=== PATIENT | male | born 1935 | race Caucasian/White ===

== ENCOUNTER 2017-11-18 15:16 | Outpatient (CLI) | payer MEDICARE, OTHER ==
--- NOTE | 2017-11-18 15:54 | RAD ---
LEFT HIP THREE VIEWS: History: Hip pain. FINDINGS: Minimal arthritic change of the hip joint are seen. No significant joint space narrowing. Extensive v ascular calcifications. IMPRESSION: Minimal arthritic changes of the hip. POS: ALEX
--- NOTE | 2017-11-18 15:55 | RAD ---
RIGHT HIP TWO VIEWS: History: Right hip pain. FINDINGS: There is very minimal arthritic change of the hip joint. No significant joint space narrowing. Extens glo vascular calcifications are seen. IMPRESSION: Atherosclerosis. No significant joint space narrowing or significant arthritic change. POS: ALEX
--- NOTE | 2017-11-18 15:57 | RAD ---
AP PELVIS: History: Bilateral hip pain. FINDINGS: Pelvic ring is intact. There are minimal arthritic changes of both hips. There are arthritic changes of the lower lumbar spine. There is fairly extensive vascular calcifications noted. IMPRESSION: No acute findings. Minimal arthritic changes of both hips. Extensive atherosclerosis. POS: ALEX
== END 2017-11-18 15:17 | disposition home or self-care (01) ==
LOC: TBSIIMAG 15:16
PROVIDERS: ATTEND Psychiatry & Neurology Neurology
DX: M25.551 Pain in right hip (principal); M25.552 Pain in left hip; M16.0 Bilateral primary osteoarthritis of hip; I70.90 Unspecified atherosclerosis
CPT/HCPCS: 72170

== ENCOUNTER 2017-12-02 08:43 | Outpatient (CLI) | payer MEDICARE, OTHER | END 2017-12-02 08:44 | disposition home or self-care (01) | LOC: BICMRI 08:43 | PROVIDERS: ATTEND Psychiatry & Neurology Neurology | DX: M47.896 Other spondylosis, lumbar region (principal); M48.061 Spinal stenosis, lumbar region without neurogenic claudication; M99.83 Other biomechanical lesions of lumbar region | CPT/HCPCS: 72148 ==

== ENCOUNTER 2018-12-14 00:08 | Outpatient (CLI) | payer MEDICARE, OTHER ==
[2018-12-14 10:51] LABS: PTT 30.1 SEC (22.9-36.1); Prothrombin Time 13.5 SEC (12.0-14.7)
[2018-12-14 10:58] LABS: Anion Gap 12 mmol/L (10-20); BUN (Urea Nitrogen) 71 mg/dL (8.4-25.7); Calc. Creatinine Clearance 0 mL/min (70-130); Calcium 8.9 mg/dL (7.8-10.44); Carbon Dioxide 23 mmol/L (23-31); Chloride 107 mmol/L (98-107); Estimated GFR-MDRD 29; Glucose 248 mg/dL (83-110); Potassium 5.3 mmol/L (3.5-5.1); Sodium 137 mmol/L (136-145)
[2018-12-14 12:30] LABS: Hemoglobin 8.2 g/dL (14.0-18.0); Mean Corpuscular HGB CONC 31.5 g/dL (32.0-36.0); Mean Corpuscular Hemoglobin 33.3 pg (27.0-31.0); Mean Platelet Volume 10.6 fL (7.4-10.4); Platelet Count 151 thou/uL (130-400); RBC Distribution Width 17.1 % (11.5-14.5); Red Blood Cell (RBC) Count 2.46 mill/uL (4.70-6.10); White Blood Cell (WBC) Count 6.9 thou/uL (4.8-10.8)
--- NOTE | 2018-12-14 18:20 | EKG ---
Test Reason : Blood Pressure : / mmHG Vent. Rate : 055 BPM Atrial Rate : 055 BPM P-R Int : 200 ms QRS Dur : 090 ms QT Int : 444 ms P-R-T Axes : 059 056 040 degrees QTc Int : 424 ms Sinus bradycardia Inferior infarct , age undetermined Abnormal ECG No previous ECGs available Confirmed by DR. Sharan OVALLE (3) on 12/14/2018 6:20:08 PM Referred By: GISELLA Confirmed By:DR. Sharan OVALLE
== END 2018-12-14 00:09 | disposition home or self-care (01) ==
LOC: LABBT 00:08
PROVIDERS: ATTEND Surgery
DX: Z01.818 Encounter for other preprocedural examination (principal); M54.16 Radiculopathy, lumbar region; M48.061 Spinal stenosis, lumbar region without neurogenic claudication
CPT/HCPCS: 80048; 85027; 85610; 85730; 93005; 93010

== ENCOUNTER 2018-12-21 07:23 | Inpatient (IN) | payer MEDICARE, OTHER ==
[2018-12-14 08:53] VITALS: BMI 25.8
[2018-12-21] MEDS ORDERED: Promethazine HCl 25 MG/ML VIAL SLOW IVP PRN ×2 (08:22→12:59)
[2018-12-21] MEDS ORDERED: Promethazine HCl 25 MG/ML VIAL IM PRN ×3 (08:22→12:59)
[2018-12-21] MEDS ORDERED: Ondansetron HCl/PF 4 MG/2 ML Vial IVP PRN ×2 (08:22→12:59)
[2018-12-21] MEDS ORDERED: Insulin Regular 300 UNITS/3 ML VIAL ONE (08:25)
[2018-12-21] MEDS ORDERED: Rocuronium Bromide 10 MG/ML (10ML VIAL) ONE (09:11)
[2018-12-21] MEDS ORDERED: PROPOFOL 200 MG/20 ML VIAL ONE (09:11)
[2018-12-21] MEDS ORDERED: Glycopyrrolate 0.2 MG/ML 5 ML SYRINGE ONE (09:11)
[2018-12-21] MEDS ORDERED: Lidocaine 1% PF 5 ML VIAL ONE (09:11)
[2018-12-21] MEDS ORDERED: ePHEDrine 50 MG/ML VIAL ONE (09:11)
[2018-12-21] MEDS ORDERED: PHENYLEPHRINE-NS 100 MCG/ML 10 ML SYRINGE ONE (09:11)
[2018-12-21] MEDS ORDERED: Ondansetron PF 4 MG/2 ML Vial ONE (09:11)
[2018-12-21] MEDS ORDERED: Thrombin 5000 UNITS/5 ML VIAL ONE ×2 (09:19→12:03)
[2018-12-21] MEDS ORDERED: Bacitracin Zinc Ointment 30 gm TUBE ONE (09:19)
[2018-12-21] MEDS ORDERED: Sodium Chloride 0.9% 10 ML ONE (09:19)
[2018-12-21] MEDS ORDERED: Fentanyl 100 MCG/2 ML VIAL ONE (10:01)
[2018-12-21] MEDS ORDERED: Milk Of Magnesia 30 ML UDCUP PO PRN (12:54)
[2018-12-21] MEDS ORDERED: Fleet Enema 133 ML BOT PR PRN (12:54)
[2018-12-21] MEDS ORDERED: Acetaminophen/Codeine 30-300mg Tablet PO PRN (12:54)
[2018-12-21] MEDS ORDERED: traMADol HCl 50 MG TAB PO PRN (12:54)
[2018-12-21] MEDS ORDERED: Mag-Al 1200 mg/1200 mg/30 ML UDCUP PO PRN (12:54)
[2018-12-21] MEDS ORDERED: Bisacodyl 10 MG SUPP PR PRN (12:54)
[2018-12-21] MEDS ORDERED: HYDROcodone/Acetaminophen 7.5/325 mg Tablet PO PRN (12:54)
[2018-12-21] MEDS ORDERED: Morphine 4 MG/ML VIAL SLOW IVP PRN (12:54)
[2018-12-21] MEDS ORDERED: Morphine Sulfate 2 MG/ML SYRINGE SLOW IVP PRN (12:59)
[2018-12-21] MEDS ORDERED: Meperidine HCl/PF 25 MG/ML VIAL SLOW IVP PRN (12:59)
[2018-12-21] MEDS ORDERED: Insulin Regular 300 UNITS/3 ML VIAL SC SCH (13:30)
[2018-12-21] MEDS ORDERED: HumaLOG 300 UNITS/3 ML VIAL SC SCH (17:00)
[2018-12-21] MEDS: CEFAZOLIN 2 GM in Premix Bag 1 BAG IVPB SCH (19:00)
[2018-12-21] MEDS ORDERED: INSULIN GLARGINE HUM REC ANLOG 8 UNIT SQ SCH (21:00)
[2018-12-21] MEDS: Sodium Chloride 0.9% 1,000 ML IV SCH (21:01)
[2018-12-21] MEDS: Insulin Glargine 8 UNITS in Pre-Filled Syringe 1 EACH SC SCH (21:15)
[2018-12-21] MEDS ORDERED: Dextrose 50% Abboject 50 ML SYRINGE ONE (21:36)
[2018-12-21 22:09] LABS: Glucose Accucheck Confirmation 45 mg/dl (83-110)
[2018-12-22] MEDS: CEFAZOLIN 2 GM in Premix Bag 1 BAG IVPB SCH (01:21)
[2018-12-22] MEDS: Sodium Chloride 0.9% 1,000 ML IV SCH ×2 (02:30→16:22)
[2018-12-22] MEDS ORDERED: Cepastat Lozenges 1 LOZ PO PRN (07:21)
[2018-12-22] MEDS ORDERED: Eucerin (Mineral Oil/Petrolatum,White) 30 gm Jar TOP PRN (07:21)
[2018-12-22] MEDS ORDERED: Ondansetron ODT 4 MG TAB SL PRN (07:21)
[2018-12-22] MEDS ORDERED: Ondansetron PF 4 MG/2 ML Vial IVP PRN (07:21)
[2018-12-22] MEDS ORDERED: Senokot S 8.6-50 MG TAB PO PRN (07:21)
[2018-12-22] MEDS ORDERED: Loratadine 10 MG TAB PO PRN (07:21)
[2018-12-22] MEDS ORDERED: hydrALAZINE 20 MG/ML VIAL SLOW IVP PRN (07:21)
[2018-12-22] MEDS ORDERED: Sodium Chloride 0.65% Nasal 44 ML BOT EA NARE PRN (07:21)
[2018-12-22] MEDS ORDERED: Artificial Tears 18 DROP/0.9 ML EA EYE PRN (07:21)
[2018-12-22] MEDS ORDERED: Loperamide HCl 2 MG CAP PO PRN (07:21)
[2018-12-22] MEDS ORDERED: Dextrose 50% Abboject 50 ML SYRINGE SLOW IVP PRN (07:22)
[2018-12-22] MEDS ORDERED: Dextrose 5% in Water 1,000 ML IV PRN (07:22)
--- NOTE | 2018-12-22 07:31 | OP ---
DATE OF PROCEDURE: 12/21/2018 OPERATING ROOM: OR 12. BATTERBOARD SETTER: Scar Walters PA-C. PREPROCEDURE DIAGNOSIS: Lumbar stenosis with low back and leg pain with far-lateral left-sided disk extrusion at L4-L5. POSTPROCEDURE DIAGNOSIS: Lumbar stenosis with low back and leg pain with far-lateral left-sided disk extrusion at L4-L5. PROCEDURES PERFORMED: 1. L3-L4 and L4-L5 laminectomies, partial facetectomies, and foraminotomies. 2. Use of operative microscope for microdissection. 3. Left L4-L5 trans-facet approach for far lateral diskectomy. DESCRIPTION OF PROCEDURE: After informed consent was obtained from the patient, the patient was brought to the OR. Proper patient, pause, and identification were carried out. He was placed under excellent general endotracheal anesthesia and positioned prone on the OR table. All appropriate points were padded. We identified the L3, L4, and L5 dorsal spines. A linear loki was made over this region. This area was sterilely cleansed, prepared, and draped. Proper patient, pause, and identification were carried out. The wound was then opened with combination of sharp, monopolar, and blunt dissection. The L3, L4, and L5 dorsal spines and lamina were exposed. Localization film confirmed our area of interest. We then performed L3-L4 and L4-L5 laminectomies, partial facetectomies, and foraminotomies with excellent decompression of the common dural tube in the L3, L4, and L5 nerve roots. We then turned our attention to the use of operative microscope for microdissection, performed a left L4-L5 trans-facet approach for diskectomy to decompress the exiting left L4 nerve root in its lateral and far-lateral portions of its anatomy. We removed disk material and achieved excellent decompression. I should note over the right L3-L4 segment. There was a small opening in the dura with arachnoid exposed that was partial thickness, but no CSF leak. This was protected with dissolvable Gelfoam. Copious irrigation occurred throughout as did maximizing hemostasis. The wound was then closed in anatomic layers following this placement of a small amount of DuraSeal, and the patient then emerged from anesthesia. Job ID: [id number]
[2018-12-22 08:42] LABS: Anion Gap 17 mmol/L (10-20); BUN (Urea Nitrogen) 67 mg/dL (8.4-25.7); Calc. Creatinine Clearance 22 mL/min (70-130); Calcium 7.8 mg/dL (7.8-10.44); Carbon Dioxide 19 mmol/L (23-31); Chloride 103 mmol/L (98-107); Estimated GFR-MDRD 21; Glucose 428 mg/dL (83-110); Potassium 5.2 mmol/L (3.5-5.1); Sodium 134 mmol/L (136-145)
[2018-12-22] MEDS ORDERED: Lisinopril 20 MG TAB PO SCH (09:00)
[2018-12-22] MEDS ORDERED: Rosuvastatin 10 MG TAB PO SCH (09:00)
[2018-12-22] MEDS: Furosemide 40 MG TAB PO SCH (09:58)
[2018-12-22] MEDS: Tamsulosin HCl 0.4 MG CAP PO SCH (09:58)
[2018-12-22] MEDS: Insulin Glargine 8 UNITS in Pre-Filled Syringe 1 EACH SC SCH (10:34)
[2018-12-22] MEDS: HumaLOG 300 UNITS/3 ML VIAL SC SCH ×2 (10:35→17:25)
[2018-12-22 10:45] LABS: Band 12 % (5-11); Hemoglobin 6.6 g/dL (14.0-18.0); Hypochromia SLIGHT = 6-15 cells (100X) (0-5/hpf); Lymphocytes 10 % (21-51); MDiff Complete? YES; Macrocytosis SLIGHT = 6-15 cells (100X) (0-5/hpf); Mean Corpuscular HGB CONC 31.6 g/dL (32.0-36.0); Mean Corpuscular Hemoglobin 34.5 pg (27.0-31.0); Mean Platelet Volume 11.4 fL (7.4-10.4); Monocytes 9 % (0-10); Neutrophil 69 % (42-75); Platelet Count 129 thou/uL (130-400); Platelet Morphology Comment Appears Adequate; Polychromasia SLIGHT = 2-3 cells (100X) (0-2/hpf); RBC Distribution Width 17.7 % (11.5-14.5); Schistocytes SLIGHT = 2-5 cells (100X) (0-1/hpf); White Blood Cell (WBC) Count 12.2 thou/uL (4.8-10.8)
--- NOTE | 2018-12-22 11:10 | PDOC.PN ---
- Subjective Encounter Start Date: 12/22/18 Encounter Start Time: 09:30 -: old records requested/rev last night pt had urinary retention and required guzmán+, today his Hb dropped, no chest pain, he is weak Patient seen and examined. - Objective MAR Reviewed: Yes Vital Signs & Weight: Vital Signs (12 hours) Temp Pulse Resp BP BP BP Pulse Ox 12/22/18 09:56 143/55 H 12/22/18 07:52 99.2 F 70 19 125/54 L 91 L 12/22/18 00:00 98.0 F 68 18 127/55 L 94 L Weight Weight 170 lb I&O: 12/21/18 12/22/18 12/23/18 06:59 06:59 06:59 Output Total 1200 Balance -1200 Result Diagrams: 12/22/18 07:41 12/22/18 07:41 Additional Labs: Accuchecks 12/22/18 12/21/18 12/21/18 04:03 23:04 21:42 POC Glucose 356 H 157 H 62 L 12/21/18 12/21/18 12/21/18 21:28 21:12 21:10 POC Glucose Less than 35 L* 35 L* 36 L* 12/21/18 12/21/18 12/21/18 14:05 12:56 11:50 POC Glucose 179 H 228 H 254 H 12/21/18 12/21/18 10:34 08:23 POC Glucose 323 H 345 H Phys Exam - Physical Examination Constitutional: NAD HEENT: PERRLA, moist MMs, sclera anicteric Neck: no JVD, supple Respiratory: no wheezing, no rales, no rhonchi Cardiovascular: RRR, no significant murmur, no rub Gastrointestinal: soft, non-tender, no distention, positive bowel sounds Lymphatic: no nodes Psychiatric: normal affect, A&O x 3 Skin: no rash, normal turgor Dx/Plan (1) Acute urinary retention Code(s): R33.8 - OTHER RETENTION OF URINE Status: Acute (2) Hypoglycemia associated with type 2 diabetes mellitus Code(s): E11.649 - TYPE 2 DIABETES MELLITUS WITH HYPOGLYCEMIA WITHOUT COMA Status: Acute (3) S/P lumbar laminectomy Code(s): Z98.890 - OTHER SPECIFIED POSTPROCEDURAL STATES Status: Acute (4) Dyslipidemia Code(s): E78.5 - HYPERLIPIDEMIA, UNSPECIFIED Status: Chronic (5) Hypertension Code(s): I10 - ESSENTIAL (PRIMARY) HYPERTENSION Status: Chronic (6) Anemia, normocytic normochromic Code(s): D64.9 - ANEMIA, UNSPECIFIED Status: Acute (7) Diabetes type 2, uncontrolled Code(s): E11.65 - TYPE 2 DIABETES MELLITUS WITH HYPERGLYCEMIA Status: Chronic - Plan cont current plan of care * transfuse 1 unit PRBC * continue flomax * urology consulted, may need voiding trail * continue PT * home medication reconciled * medication reviewed as below * symptomatic treatment * pain controlled. Review of Systems - Review of Systems Eyes: negative: Pain, Vision Change, Conjunctivae Inflammation, Eyelid Inflammation, Redness, Other ENT: negative: Ear Pain, Ear Discharge, Nose Pain, Nose Discharge, Nose Congestion, Mouth Pain, Mouth Swelling, Throat Pain, Throat Swelling, Other Respiratory: negative: Cough, Dry, Shortness of Breath, Hemoptysis, SOB with Excertion, Pleuritic Pain, Sputum, Wheezing Cardiovascular: negative: chest pain, palpitations, orthopnea, paroxysmal nocturnal dyspnea, edema, light headedness, other Gastrointestinal: negative: Nausea, Vomiting, Abdominal Pain, Diarrhea, Constipation, Melena, Hematochezia, Other Genitourinary: negative: Dysuria, Frequency, Incontinence, Hematuria, Retention , Other Musculoskeletal: negative: Neck Pain, Shoulder Pain, Arm Pain, Back Pain, Hand Pain, Leg Pain, Foot Pain, Other Skin: negative: Rash, Lesions, Jamie, Bruising, Other - Medications/Allergies Allergies/Adverse Reactions: Allergies Allergy/AdvReac Type Severity Reaction Status Date / Time No Known Allergies Allergy Verified 12/21/18 23:17 Medications: Current Medications Acetaminophen (Tylenol) 650 mg PO Q4H PRN PRN Reason: Headache/Fever or Pain Acetaminophen/Codeine Phosphate (Tylenol #3) 1 tab PO Q3H PRN PRN Reason: Mild Pain (1-3) Hydrocodone Bitart/Acetaminophen ([place] 7.5/325) 1 tab PO Q4H PRN PRN Reason: Moderate Pain (4-6) Al Hydroxide/Mg Hydroxide (Maalox) 30 ml PO Q4H PRN PRN Reason: Indigestion Artificial Tears (Tears Naturale) 2 drop EA EYE PRN PRN PRN Reason: Dry Eyes Bisacodyl (Dulcolax) 10 mg [place] Q12H PRN PRN Reason: Constipation Dextrose/Water (Dextrose 50%) 25 gm SLOW IVP PRN PRN PRN Reason: Hypoglycemia Furosemide (Lasix) 40 mg PO DAILY [facility] Last Admin: 12/22/18 09:58 Dose: 40 mg Glucagon (Glucagon) 1 mg IM PRN PRN PRN Reason: Hypoglycemia Guaifenesin (Robitussin Sf) 200 mg PO Q4H PRN PRN Reason: Cough Hydralazine HCl (Apresoline) 10 mg SLOW IVP Q4H PRN PRN Reason: SBP > 180 and HR < 70 Insulin Glargine 8 units/ (Miscellaneous Medication) 0.08 mls @ 0 mls/hr SC BID [facility] Last Admin: 12/22/18 10:34 Dose: 0.08 mls Dextrose/Water (D5w) 1,000 mls @ 0 mls/hr IV .Q0M PRN PRN Reason: Hypoglycemia Insulin Human Lispro (Humalog) 8 units SC TID-WM [facility] Last Admin: 12/22/18 10:35 Dose: 8 unit Lisinopril (Zestril) 40 mg PO DAILY [facility] Last Admin: 12/22/18 09:56 Dose: 40 mg Loperamide HCl (Imodium) 2 mg PO PRN PRN PRN Reason: Diarrhea/Loose Stools Loratadine (Claritin) 10 mg PO DAILYPRN PRN PRN Reason: Sinus Symptoms Magnesium Hydroxide (Milk Of Magnesium) 30 ml PO Q12H PRN PRN Reason: Constipation Metoprolol Succinate (Toprol Xl) 25 mg PO BID [facility] Last Admin: 12/22/18 09:58 Dose: 25 mg Mineral Oil/White Petrolatum (Eucerin Cream) 0 gm TOP BIDPRN PRN PRN Reason: Dry Skin Morphine Sulfate (Morphine) 2 mg SLOW IVP Q1H PRN PRN Reason: Severe Pain (7-10) Ondansetron HCl (Zofran Odt) 4 mg SL Q6H PRN PRN Reason: Nausea/Vomiting Ondansetron HCl (Zofran) 4 mg IVP Q6H PRN PRN Reason: Nausea/Vomiting Promethazine HCl (Phenergan) 12.5 mg IM Q4H PRN PRN Reason: Nausea/Vomiting Rosuvastatin Calcium (Crestor) 10 mg PO DAILY [facility] Last Admin: 12/22/18 09:58 Dose: 10 mg Senna/Docusate Sodium (Senokot S) 2 tab PO BID PRN PRN Reason: Constipation Sodium Biphosphate/Sodium Phosphate (Fleet Enema) 133 ml AL ONE PRN PRN Reason: Constipation Stop: 12/24/18 12:55 Sodium Chloride (Flush - Normal Saline) 10 ml IVF PRN PRN PRN Reason: Saline Flush Sodium Chloride ([place] Nasal [place] 0.65%) 0 ml EA NARE QIDPRN PRN PRN Reason: Nasal Congestion Tamsulosin HCl (Flomax) 0.4 mg PO DAILY [facility] Last Admin: 12/22/18 09:58 Dose: 0.4 mg Throat Lozenges (Cepastat Lozenges) 1 julia PO Q2H PRN PRN Reason: Sore Throat Tizanidine HCl (Zanaflex) 4 mg PO Q6H PRN PRN Reason: Muscle Spasm Tramadol HCl (Ultram) 50 mg PO Q6H PRN PRN Reason: Mild Pain (1-3)
[2018-12-22] MEDS ORDERED: HumaLOG 300 UNITS/3 ML VIAL SC SCH ×2 (11:45→15:00)
[2018-12-22] MEDS: HumaLOG 300 UNITS/3 ML VIAL SC PRN ×5 (13:38→22:30)
--- NOTE | 2018-12-22 14:29 | PRG ---
DATE OF SERVICE: 12/22/2018 SUBJECTIVE: Mr. Choe is postoperative day 1 from lumbar decompression. He has had resolution in his leg pain. He has not voided yet spontaneously, we will remove his urine Clancy catheter. His hemoglobin has gone from 8.2 preoperatively to 6.6. We will consider transfusion of 1 of 2 units. Job ID: [id number]
[2018-12-22 16:22] LABS: Anion Gap 15 mmol/L (10-20); BUN (Urea Nitrogen) 74 mg/dL (8.4-25.7); Calc. Creatinine Clearance 20 mL/min (70-130); Calcium 7.6 mg/dL (7.8-10.44); Carbon Dioxide 20 mmol/L (23-31); Chloride 101 mmol/L (98-107); Estimated GFR-MDRD 19; Glucose 491 mg/dL (83-110); Potassium 5.7 mmol/L (3.5-5.1); Sodium 130 mmol/L (136-145)
[2018-12-22 16:49] LABS: Bilirubin Negative (Negative); Blood, Urine Large (Negative); Clarity CLOUDY (Clear); Glucose, Urine (Dipstick) >=1000 mg/dL (Negative); Leukocyte Trace (Negative); Nitrite Negative (Negative); Protein, Urine (Dipstick) 30 mg/dL (Neg-Trace); Specific Gravity, Urine 1.017 (1.002-1.036); Urobilinogen 0.2 mg/dL (0.2-1.0)
[2018-12-22 16:51] LABS: Bacteria/HPF None Seen HPF (None Seen); Hyaline Casts/LPF 0-3 HYALINE CAST LPF (0-3 Hyaline); RBC/HPF GREATER THAN 50-TNTC HPF (0-3); Squamous Epithelial None Seen HPF (0-3)
[2018-12-22 16:56] LABS: Yeast-AUWi Flag 41.2 (0-25.0)
[2018-12-22 17:09] LABS: Yeast-All Forms None Seen HPF (None Seen)
[2018-12-22] MEDS ORDERED: Sodium Bicarb 50 MEQ/50 ML Abboject 8.4% SYRINGE IVP SCH (19:00)
[2018-12-22] MEDS: Acetaminophen 325 MG TAB PO PRN (20:45)
[2018-12-22] MEDS: cefTRIAXone\\ROCEPHIN 1 GM in Sodium Chloride 0.9% 100 ML IVPB SCH (20:46)
[2018-12-22] MEDS: Insulin Glargine 15 UNITS in Pre-Filled Syringe 1 EACH SC SCH (20:46)
[2018-12-22] MEDS: Sodium Bicarbonate Tab 325 MG TAB PO SCH (20:46)
[2018-12-23] MEDS: Sodium Chloride 0.9% 1,000 ML IV SCH (04:08)
[2018-12-23] MEDS: Insulin Glargine 15 UNITS in Pre-Filled Syringe 1 EACH SC SCH ×2 (08:43→20:56)
[2018-12-23] MEDS: HumaLOG 300 UNITS/3 ML VIAL SC SCH ×3 (08:43→18:16)
[2018-12-23] MEDS: Sodium Bicarbonate Tab 325 MG TAB PO SCH ×2 (08:45→20:47)
[2018-12-23] MEDS: Amlodipine 10 MG TAB PO SCH (08:45)
[2018-12-23] MEDS: Furosemide 40 MG TAB PO SCH (08:46)
[2018-12-23] MEDS: Tamsulosin HCl 0.4 MG CAP PO SCH (08:46)
[2018-12-23 09:34] LABS: Hemoglobin A1c 7.4 % (4.0-6.0)
[2018-12-23 09:42] LABS: Magnesium 1.6 mg/dL (1.6-2.6); Phosphorus 3.7 mg/dL (2.3-4.7)
--- NOTE | 2018-12-23 10:04 | PDOC.PN ---
- Subjective Encounter Start Date: 12/23/18 Encounter Start Time: 09:00 Patient seen and examined. No new complaints. No overnight events - Objective MAR Reviewed: Yes Vital Signs & Weight: Vital Signs (12 hours) Temp Pulse Resp BP BP Pulse Ox 12/23/18 08:45 75 145/56 H 12/23/18 07:37 99.7 F H 75 18 145/56 H 92 L 12/23/18 04:00 99.6 F 74 18 151/66 H 94 L 12/23/18 00:00 98.6 F 74 18 145/54 H 93 L Weight Weight 170 lb I&O: 12/22/18 12/23/18 12/24/18 06:59 06:59 06:59 Intake Total 1851 Output Total 1200 1300 Balance -1200 551 Result Diagrams: 12/22/18 07:41 12/22/18 15:49 Additional Labs: Accuchecks 12/23/18 12/23/18 12/23/18 08:43 06:19 04:24 POC Glucose 198 H 161 H 137 H 12/23/18 12/23/18 12/22/18 02:06 00:10 22:28 POC Glucose 127 H 161 H 222 H 12/22/18 12/22/18 12/22/18 20:43 17:58 15:50 POC Glucose 283 H 416 H 497 H 12/22/18 12/22/18 12/21/18 13:16 09:41 08:23 POC Glucose Greater than 550 H* Greater than 550 H* 345 H Phys Exam - Physical Examination Constitutional: NAD HEENT: PERRLA, moist MMs, sclera anicteric Neck: no JVD, supple Respiratory: no rales, wheezing present Cardiovascular: RRR, no significant murmur, no rub Gastrointestinal: soft, non-tender, no distention, positive bowel sounds Musculoskeletal: no edema, pulses present Neurological: non-focal, normal sensation Lymphatic: no nodes Psychiatric: normal affect, A&O x 3 Skin: no rash, normal turgor Dx/Plan (1) Acute urinary retention Code(s): R33.8 - OTHER RETENTION OF URINE Status: Acute (2) Hypoglycemia associated with type 2 diabetes mellitus Code(s): E11.649 - TYPE 2 DIABETES MELLITUS WITH HYPOGLYCEMIA WITHOUT COMA Status: Acute (3) S/P lumbar laminectomy Code(s): Z98.890 - OTHER SPECIFIED POSTPROCEDURAL STATES Status: Acute (4) Dyslipidemia Code(s): E78.5 - HYPERLIPIDEMIA, UNSPECIFIED Status: Chronic (5) Hypertension Code(s): I10 - ESSENTIAL (PRIMARY) HYPERTENSION Status: Chronic (6) UTI (urinary tract infection) Status: Acute (7) Anemia, normocytic normochromic Code(s): D64.9 - ANEMIA, UNSPECIFIED Status: Acute (8) Diabetes type 2, uncontrolled Code(s): E11.65 - TYPE 2 DIABETES MELLITUS WITH HYPERGLYCEMIA Status: Chronic - Plan cont current plan of care, plan discussed w/ family, continue antibiotics, PT/OT , social welfare administrator * will check cbc, cmp today * spoke with bedside * dc IVF * duoneb for wheezing * continue rocephin * ambulate with PT * now blood sugar are well controlled * pain controlled. Review of Systems - Review of Systems ENT: negative: Ear Pain, Ear Discharge, Nose Pain, Nose Discharge, Nose Congestion, Mouth Pain, Mouth Swelling, Throat Pain, Throat Swelling, Other Respiratory: negative: Cough, Dry, Shortness of Breath, Hemoptysis, SOB with Excertion, Pleuritic Pain, Sputum, Wheezing Cardiovascular: negative: chest pain, palpitations, orthopnea, paroxysmal nocturnal dyspnea, edema, light headedness, other Gastrointestinal: negative: Nausea, Vomiting, Abdominal Pain, Diarrhea, Constipation, Melena, Hematochezia, Other Genitourinary: negative: Dysuria, Frequency, Incontinence, Hematuria, Retention , Other Musculoskeletal: negative: Neck Pain, Shoulder Pain, Arm Pain, Back Pain, Hand Pain, Leg Pain, Foot Pain, Other Skin: negative: Rash, Lesions, Jamie, Bruising, Other - Medications/Allergies Allergies/Adverse Reactions: Allergies Allergy/AdvReac Type Severity Reaction Status Date / Time No Known Allergies Allergy Verified 12/21/18 23:17 Medications: Current Medications Acetaminophen (Tylenol) 650 mg PO Q4H PRN PRN Reason: Headache/Fever or Pain Last Admin: 12/22/18 20:45 Dose: 650 mg Acetaminophen/Codeine Phosphate (Tylenol #3) 1 tab PO Q3H PRN PRN Reason: Mild Pain (1-3) Hydrocodone Bitart/Acetaminophen ([place] 7.5/325) 1 tab PO Q4H PRN PRN Reason: Moderate Pain (4-6) Al Hydroxide/Mg Hydroxide (Maalox) 30 ml PO Q4H PRN PRN Reason: Indigestion Albuterol/Ipratropium (Duoneb) 3 ml NEB ONE ERIC Albuterol/Ipratropium (Duoneb) 3 ml NEB [id number] [facility] Amlodipine Besylate (Norvasc) 10 mg PO DAILY [facility] Last Admin: 12/23/18 08:45 Dose: 10 mg Artificial Tears (Tears Naturale) 2 drop EA EYE PRN PRN PRN Reason: Dry Eyes Bisacodyl (Dulcolax) 10 mg [place] Q12H PRN PRN Reason: Constipation Dextrose/Water (Dextrose 50%) 25 gm SLOW IVP PRN PRN PRN Reason: Hypoglycemia Furosemide (Lasix) 40 mg PO DAILY [facility] Last Admin: 12/23/18 08:46 Dose: 40 mg Glucagon (Glucagon) 1 mg IM PRN PRN PRN Reason: Hypoglycemia Guaifenesin (Robitussin Sf) 200 mg PO Q4H PRN PRN Reason: Cough Hydralazine HCl (Apresoline) 10 mg SLOW IVP Q4H PRN PRN Reason: SBP > 180 and HR < 70 Dextrose/Water (D5w) 1,000 mls @ 0 mls/hr IV .Q0M PRN PRN Reason: Hypoglycemia Insulin Glargine 15 units/ (Miscellaneous Medication) 0.15 mls @ 0 mls/hr SC HS [facility] Last Admin: 12/22/18 20:46 Dose: 0.15 mls Insulin Glargine 15 units/ (Miscellaneous Medication) 0.15 mls @ 0 mls/hr SC QAM [facility] Last Admin: 12/23/18 08:43 Dose: 0.15 mls Ceftriaxone Sodium 1 gm/ (Sodium Chloride) 100 mls @ 200 mls/hr IVPB Q24HR [facility] Last Admin: 12/22/18 20:46 Dose: 100 mls Insulin Human Lispro (Humalog) 8 units SC TID-WM [facility] Last Admin: 12/23/18 08:43 Dose: 8 unit Insulin Human Lispro (Humalog) 0 units SC .MODERATE SLIDING SC PRN; Protocol PRN Reason: MODERATE SLIDING SCALE Last Admin: 12/22/18 22:30 Dose: 4 unit Loperamide HCl (Imodium) 2 mg PO PRN PRN PRN Reason: Diarrhea/Loose Stools Loratadine (Claritin) 10 mg PO DAILYPRN PRN PRN Reason: Sinus Symptoms Magnesium Hydroxide (Milk Of Magnesium) 30 ml PO Q12H PRN PRN Reason: Constipation Metoprolol Succinate (Toprol Xl) 25 mg PO BID [facility] Last Admin: 12/23/18 08:46 Dose: 25 mg Mineral Oil/White Petrolatum (Eucerin Cream) 0 gm TOP BIDPRN PRN PRN Reason: Dry Skin Morphine Sulfate (Morphine) 2 mg SLOW IVP Q1H PRN PRN Reason: Severe Pain (7-10) Ondansetron HCl (Zofran Odt) 4 mg SL Q6H PRN PRN Reason: Nausea/Vomiting Ondansetron HCl (Zofran) 4 mg IVP Q6H PRN PRN Reason: Nausea/Vomiting Promethazine HCl (Phenergan) 12.5 mg IM Q4H PRN PRN Reason: Nausea/Vomiting Rosuvastatin Calcium (Crestor) 10 mg PO HS [facility] Senna/Docusate Sodium (Senokot S) 2 tab PO BID PRN PRN Reason: Constipation Sodium Bicarbonate (Bicarbonate, Sodium) 650 mg PO BID [facility] Last Admin: 12/23/18 08:45 Dose: 650 mg Sodium Biphosphate/Sodium Phosphate (Fleet Enema) 133 ml [place] ONE PRN PRN Reason: Constipation Stop: 12/24/18 12:55 Sodium Chloride (Flush - Normal Saline) 10 ml IVF PRN PRN PRN Reason: Saline Flush Sodium Chloride ([place] Nasal [place] 0.65%) 0 ml EA NARE QIDPRN PRN PRN Reason: Nasal Congestion Tamsulosin HCl (Flomax) 0.4 mg PO DAILY [facility] Last Admin: 12/23/18 08:46 Dose: 0.4 mg Throat Lozenges (Cepastat Lozenges) 1 julia PO Q2H PRN PRN Reason: Sore Throat Tizanidine HCl (Zanaflex) 4 mg PO Q6H PRN PRN Reason: Muscle Spasm Tramadol HCl (Ultram) 50 mg PO Q6H PRN PRN Reason: Mild Pain (1-3)
[2018-12-23 10:28] LABS: Band 2 % (5-11); Elliptocytes SLIGHT = 2-5 cells (100X) (0-1/hpf); Hemoglobin 6.6 g/dL (14.0-18.0); Lymphocytes 6 % (21-51); MDiff Complete? YES; Macrocytosis SLIGHT = 6-15 cells (100X) (0-5/hpf); Mean Corpuscular HGB CONC 32.5 g/dL (32.0-36.0); Mean Corpuscular Hemoglobin 32.7 pg (27.0-31.0); Mean Platelet Volume 11.2 fL (7.4-10.4); Monocytes 12 % (0-10); Neutrophil 80 % (42-75); Ovalocytes SLIGHT = 2-5 cells (100X) (0-1/hpf); Platelet Count 95 thou/uL (130-400); Platelet Morphology Comment Appears Decreased; RBC Distribution Width 21.9 % (11.5-14.5); Tear Drops SLIGHT = 2-5 cells (100X) (0-1/hpf); White Blood Cell (WBC) Count 11.3 thou/uL (4.8-10.8)
[2018-12-23 10:59] LABS: ALT (SGPT) 8 U/L (8-55); AST (SGOT) 23 U/L (5-34); Albumin 3.1 g/dL (3.4-4.8); Alkaline Phosphatase 51 U/L (40-150); Anion Gap 14 mmol/L (10-20); BUN (Urea Nitrogen) 67 mg/dL (8.4-25.7); Bilirubin, Total 0.6 mg/dL (0.2-1.2); Calc. Creatinine Clearance 24 mL/min (70-130); Calcium 7.7 mg/dL (7.8-10.44); Carbon Dioxide 22 mmol/L (23-31); Chloride 106 mmol/L (98-107); Estimated GFR-MDRD 24; Globulin 2.3 g/dL (2.4-3.5); Glucose 177 mg/dL (83-110); Potassium 4.8 mmol/L (3.5-5.1); Protein, Total 5.4 g/dL (5.8-8.1); Sodium 137 mmol/L (136-145)
[2018-12-23] MEDS ORDERED: Furosemide 40 MG/4 ML VIAL SLOW IVP SCH (11:45)
[2018-12-23 12:21] LABS: Iron 13 ug/dL (65-175); Iron Binding Capacity, Total 170 mcg/dL (261-462)
[2018-12-23 12:23] LABS: Iron 12 ug/dL (65-175); Iron Binding Capacity, Total 184 mcg/dL (261-462)
--- NOTE | 2018-12-23 12:29 | RAD ---
PORTABLE UPRIGHT FRONTAL CHEST: Date: 12/23/18 COMPARISON: 10/17/15. HISTORY: Shortness of breath. FINDINGS: Cardiaca silhouette is enlarged, suggesting magnification and/or cardiac enlargement. Midline sternot sage wires and mediastinal clips are noted. Mild pulmonary vascular prominence. No pneumothorax, pleur al fluid, lobar consolidation, or alveolar edema. IMPRESSION: Pulmonary vascular prominence and prominence of the cardiac silhouette with no focal consolidation or alveolar edema. POS: ALEX
[2018-12-23 12:35] LABS: Ferritin 714.4 ng/mL (22-322); Thyroid Stimulating Hormone 1.4553 uIU/mL (0.35-4.94)
[2018-12-23 13:23] LABS: Folate (Folic Acid) 11.5 ng/mL (7.0-31.4)
--- NOTE | 2018-12-23 14:21 | PRG ---
DATE OF SERVICE: 12/23/2018 Mr. Choe is postoperative day #2 from lumbar decompression. He has had urinary retention. I have spoken Dr. Chanel, as Urology consultation was placed. We discussed keeping his Clancy catheter in until delayed removal can be done as they will simply take time for his bladder to resume function. He will follow up with his primary care doctor in that regard. He is getting blood for anemia. He has good strength and states that his leg pain is improved compared to before surgery. I think that he would be best to pursue inpatient rehab and I have talked with him about this and while he would like to go home, I think, that he understands the necessity of rehab. Job ID: [id number] MTDD
[2018-12-23] MEDS: Acetaminophen 325 MG TAB PO PRN (16:46)
[2018-12-23] MEDS: HumaLOG 300 UNITS/3 ML VIAL SC PRN (16:46)
[2018-12-23] MEDS: Rosuvastatin 10 MG TAB PO SCH (20:48)
[2018-12-23] MEDS: cefTRIAXone\\ROCEPHIN 1 GM in Sodium Chloride 0.9% 100 ML IVPB SCH (20:55)
--- NOTE | 2018-12-23 22:46 | CON ---
DATE OF CONSULTATION: 12/22/2018 CONSULTING PHYSICIAN: Sanford Baez. CONSULTED PHYSICIAN: Beto Chanel MD. REASON FOR CONSULTATION: Urinary retention. HISTORY OF PRESENT ILLNESS: Mr. Choe is an 83-year-old white male, who was admitted to the hospital postoperatively after a lumbar laminectomy for lower back and leg pain. Postoperatively, he did not urinate in recovery and that night was found to be in urinary retention. He had a catheter placed and I have been consulted for further assistance on his urinary retention. On my discussion with the patient, he states that he has no history of voiding problems in general, he urinates well without difficulty. He does not take any prostate medications at home. He has no history of hematuria, urinary tract infections, incontinence, dysuria, or previous urologic surgeries. ALLERGIES: NONE. PAST MEDICAL HISTORY: 1. Chronic renal insufficiency. 2. Coronary artery disease. 3. Diabetes mellitus type 2. 4. Diabetic neuropathy. 5. Hypercholesterolemia. 6. Hypertension. 7. Back arthritis and degenerative disk disease. PAST SURGICAL HISTORY: Includes; 1. Recent lumbar laminectomy. 2. Cardiac stent placement. HOME MEDICATIONS: 1. Humalog. 2. Lisinopril. 3. Insulin Lantus. 4. Furosemide. 5. Crestor. 6. Metoprolol. 7. Aspirin. FAMILY HISTORY: Noncontributory. SOCIAL HISTORY: The patient denies illicit drug use, alcohol abuse, smoking, or tobacco abuse. He is currently . REVIEW OF SYSTEMS: 12-point review of systems is unremarkable other than the patient's current left leg pain which he states is making him miserable, but he otherwise does not endorse any other symptoms on a 12-point review of systems. PHYSICAL EXAMINATION: VITAL SIGNS: Temperature 98.5, pulse 78, respirations 16, blood pressure 122/54, saturation 98% on room air. GENERAL: No apparent distress, communicative, alert, appears a little uncomfortable, but pain does not appear out of control. HEENT: Normocephalic, atraumatic. Pupils symmetric and round. Moist mucous membranes. Trachea midline. CARDIOVASCULAR: Regular rate and rhythm. Normal S1 and S2. Symmetric pulses. CHEST: No increased work of breathing. Symmetric expansion of lungs, clear anteriorly. ABDOMEN: Soft, nontender, nondistended. Positive bowel sounds. BACK: Not examined. : Clancy catheter in place draining clear yellow urine. EXTREMITIES: No clubbing, cyanosis, or edema. MUSCULOSKELETAL: No obvious joint deformities or joint erythema. Range of motion was not tested. NEUROLOGIC: Cranial nerves 2 through 12 appear grossly intact. No focal motor deficits identified, although the patient did not have extensive testing on his legs due to the pain. He does have left leg numbness, which he states has been present for a long time. SKIN: Warm and dry. No rashes or lesions. Poor turgor. PSYCHIATRIC: Alert and oriented x3. Appropriate mood and affect. LABORATORY DATA: On laboratory evaluation, the full set of labs in the [employer] system which I have reviewed, of note, the patient's white count is 11.3 with a hemoglobin of 6.6, creatinine is 2.61. Urinalysis demonstrates greater than 1000 glucose, greater than 50 rbc's, trace leukocyte esterase, 11 to 20 white cells. Urine culture, no growth at 24 hours. ASSESSMENT AND PLAN: An 83-year-old white male status post recent lumbar laminectomy with postoperative urinary retention, likely secondary to multiple factors including spinal irritation from recent surgery, narcotic use, immobility, advanced age, and likely benign prostatic hyperplasia. At this time, the patient will likely not be able to urinate, I would just recommend leaving a catheter in for approximately 7 days. If he is still in the hospital at that time, we can attempt a void trial if he is using less narcotics, is not significantly constipated, and is up walking around. If he is still immobile and using heavy amounts of narcotics, I would recommend just keeping the Clancy catheter in until these factors have improved at which time we can perform a void trial. If the patient ends up being discharged home, he can always go home with his catheter and I have given him my card with telephone number to contact me after his discharge so that we can work him in for a voiding trial in the office. In majority of cases, patients will regain normal voiding status once their neurological and physical condition improves with less narcotic usage. I will sign off, but will be available if necessary. Job ID: [id number]
[2018-12-24] MEDS: HumaLOG 300 UNITS/3 ML VIAL SC PRN (04:42)
[2018-12-24] MEDS: Acetaminophen 325 MG TAB PO PRN ×2 (08:07→16:57)
[2018-12-24 08:09] LABS: #Lymphocytes 1.2 thou/uL (1.20-3.40); #Monocytes 1.2 thou/uL (0.11-0.59); #Neutrophils 7.1 thou/uL (1.40-6.50); %Eosinophils 0.1 % (0.0-10.0); %Lymphocytes 12.6 % (21.0-51.0); %Monocytes 12.2 % (0.0-10.0); Hemoglobin 7.3 g/dL (14.0-18.0); Mean Corpuscular HGB CONC 32.9 g/dL (32.0-36.0); Mean Corpuscular Hemoglobin 32.2 pg (27.0-31.0); Mean Corpuscular Volume 97.9 fL (78.0-98.0); Mean Platelet Volume 11.5 fL (7.4-10.4); Platelet Count 93 thou/uL (130-400); RBC Distribution Width 21.2 % (11.5-14.5); Red Blood Cell (RBC) Count 2.26 mill/uL (4.70-6.10); White Blood Cell (WBC) Count 9.5 thou/uL (4.8-10.8)
[2018-12-24 08:23] LABS: Anion Gap 12 mmol/L (10-20); BUN (Urea Nitrogen) 63 mg/dL (8.4-25.7); Calc. Creatinine Clearance 26 mL/min (70-130); Calcium 7.7 mg/dL (7.8-10.44); Carbon Dioxide 26 mmol/L (23-31); Chloride 102 mmol/L (98-107); Estimated GFR-MDRD 25; Glucose 201 mg/dL (83-110); Potassium 4.2 mmol/L (3.5-5.1); Sodium 136 mmol/L (136-145)
[2018-12-24] MEDS: Amlodipine 10 MG TAB PO SCH (08:57)
[2018-12-24] MEDS: Furosemide 40 MG TAB PO SCH (08:58)
[2018-12-24] MEDS: HumaLOG 300 UNITS/3 ML VIAL SC SCH ×3 (08:58→19:16)
[2018-12-24] MEDS: Tamsulosin HCl 0.4 MG CAP PO SCH (08:58)
[2018-12-24] MEDS: Insulin Glargine 15 UNITS in Pre-Filled Syringe 1 EACH SC SCH ×2 (08:59→20:42)
[2018-12-24] MEDS: Sodium Bicarbonate Tab 325 MG TAB PO SCH ×2 (09:02→20:41)
--- NOTE | 2018-12-24 10:17 | PDOC.PN ---
- Subjective Encounter Start Date: 12/24/18 Encounter Start Time: 08:10 Patient seen and examined. No new complaints. No overnight events this morning pt has fever, no cough, no diarrhoea, denies back pain - Objective MAR Reviewed: Yes Vital Signs & Weight: Vital Signs (12 hours) Temp Pulse Resp BP BP Pulse Ox 12/24/18 09:07 102 F H 12/24/18 08:57 96 148/70 H 12/24/18 07:43 102.3 F H 96 18 148/70 H 90 L 12/24/18 06:35 74 16 93 L 12/24/18 00:07 76 20 96 Weight Weight 170 lb I&O: 12/23/18 12/24/18 12/25/18 06:59 06:59 06:59 Intake Total 1851 650 Output Total 1300 2100 Balance 551 -1450 Result Diagrams: 12/24/18 07:39 12/24/18 07:39 Additional Labs: Accuchecks 12/24/18 12/24/18 12/24/18 08:44 04:33 00:23 POC Glucose 229 H 236 H 183 H 12/23/18 12/23/18 12/23/18 22:13 19:48 17:50 POC Glucose 180 H 202 H 242 H 12/23/18 12/23/18 12/23/18 15:40 14:28 12:39 POC Glucose 287 H 281 H 201 H Phys Exam - Physical Examination Constitutional: NAD HEENT: PERRLA, moist MMs, sclera anicteric Neck: no JVD, supple Respiratory: no wheezing, no rales, no rhonchi Cardiovascular: RRR, no significant murmur, no rub Gastrointestinal: soft, non-tender, no distention, positive bowel sounds Musculoskeletal: no edema, pulses present guzmán+ Neurological: non-focal, normal sensation, moves all 4 limbs Psychiatric: normal affect, A&O x 3 Skin: no rash, normal turgor Dx/Plan (1) Acute urinary retention Code(s): R33.8 - OTHER RETENTION OF URINE Status: Acute (2) Hypoglycemia associated with type 2 diabetes mellitus Code(s): E11.649 - TYPE 2 DIABETES MELLITUS WITH HYPOGLYCEMIA WITHOUT COMA Status: Acute (3) S/P lumbar laminectomy Code(s): Z98.890 - OTHER SPECIFIED POSTPROCEDURAL STATES Status: Acute (4) Dyslipidemia Code(s): E78.5 - HYPERLIPIDEMIA, UNSPECIFIED Status: Chronic (5) Hypertension Code(s): I10 - ESSENTIAL (PRIMARY) HYPERTENSION Status: Chronic (6) UTI (urinary tract infection) Status: Acute (7) Anemia, normocytic normochromic Code(s): D64.9 - ANEMIA, UNSPECIFIED Status: Acute (8) Diabetes type 2, uncontrolled Code(s): E11.65 - TYPE 2 DIABETES MELLITUS WITH HYPERGLYCEMIA Status: Chronic - Plan cont current plan of care, plan discussed w/ family, continue antibiotics, PT/OT , bilingual social worker * medication reviewed as below * symptomatic treatment * continue rocephin * add levaquin * repeat labs tomorrow. * hb stable Review of Systems - Review of Systems Constitutional: fever. negative: chills, sweats, weakness, malaise, other ENT: negative: Ear Pain, Ear Discharge, Nose Pain, Nose Discharge, Nose Congestion, Mouth Pain, Mouth Swelling, Throat Pain, Throat Swelling, Other Respiratory: negative: Cough, Dry, Shortness of Breath, Hemoptysis, SOB with Excertion, Pleuritic Pain, Sputum, Wheezing Cardiovascular: negative: chest pain, palpitations, orthopnea, paroxysmal nocturnal dyspnea, edema, light headedness, other Gastrointestinal: negative: Nausea, Vomiting, Abdominal Pain, Diarrhea, Constipation, Melena, Hematochezia, Other Genitourinary: negative: Dysuria, Frequency, Incontinence, Hematuria, Retention , Other Musculoskeletal: negative: Neck Pain, Shoulder Pain, Arm Pain, Back Pain, Hand Pain, Leg Pain, Foot Pain, Other - Medications/Allergies Allergies/Adverse Reactions: Allergies Allergy/AdvReac Type Severity Reaction Status Date / Time No Known Allergies Allergy Verified 12/21/18 23:17 Medications: Current Medications Acetaminophen (Tylenol) 650 mg PO Q4H PRN PRN Reason: Headache/Fever or Pain Last Admin: 12/24/18 08:07 Dose: 650 mg Acetaminophen/Codeine Phosphate (Tylenol #3) 1 tab PO Q3H PRN PRN Reason: Mild Pain (1-3) Hydrocodone Bitart/Acetaminophen ([place] 7.5/325) 1 tab PO Q4H PRN PRN Reason: Moderate Pain (4-6) Al Hydroxide/Mg Hydroxide (Maalox) 30 ml PO Q4H PRN PRN Reason: Indigestion Albuterol/Ipratropium (Duoneb) 3 ml NEB [id number] [facility] Last Admin: 12/24/18 06:35 Dose: 3 ml Amlodipine Besylate (Norvasc) 10 mg PO DAILY [facility] Last Admin: 12/24/18 08:57 Dose: 10 mg Artificial Tears (Tears Naturale) 2 drop EA EYE PRN PRN PRN Reason: Dry Eyes Bisacodyl (Dulcolax) 10 mg MA Q12H PRN PRN Reason: Constipation Dextrose/Water (Dextrose 50%) 25 gm SLOW IVP PRN PRN PRN Reason: Hypoglycemia Furosemide (Lasix) 40 mg PO DAILY [facility] Last Admin: 12/24/18 08:58 Dose: 40 mg Glucagon (Glucagon) 1 mg IM PRN PRN PRN Reason: Hypoglycemia Guaifenesin (Robitussin Sf) 200 mg PO Q4H PRN PRN Reason: Cough Hydralazine HCl (Apresoline) 10 mg SLOW IVP Q4H PRN PRN Reason: SBP > 180 and HR < 70 Dextrose/Water (D5w) 1,000 mls @ 0 mls/hr IV .Q0M PRN PRN Reason: Hypoglycemia Insulin Glargine 15 units/ (Miscellaneous Medication) 0.15 mls @ 0 mls/hr SC HS [facility] Last Admin: 12/23/18 20:56 Dose: 0.15 mls Insulin Glargine 15 units/ (Miscellaneous Medication) 0.15 mls @ 0 mls/hr SC QAM [facility] Last Admin: 12/24/18 08:59 Dose: 0.15 mls Ceftriaxone Sodium 1 gm/ (Sodium Chloride) 100 mls @ 200 mls/hr IVPB Q24HR [facility] Last Admin: 12/23/18 20:55 Dose: 100 mls Levofloxacin 500 mg/ Device 100 mls @ 100 mls/hr IVPB Q2DAYS [facility] Insulin Human Lispro (Humalog) 8 units SC TID-WM [facility] Last Admin: 12/24/18 08:58 Dose: 8 unit Insulin Human Lispro (Humalog) 0 units SC .MODERATE SLIDING SC PRN; Protocol PRN Reason: MODERATE SLIDING SCALE Last Admin: 12/24/18 04:42 Dose: 4 unit Loperamide HCl (Imodium) 2 mg PO PRN PRN PRN Reason: Diarrhea/Loose Stools Loratadine (Claritin) 10 mg PO DAILYPRN PRN PRN Reason: Sinus Symptoms Magnesium Hydroxide (Milk Of Magnesium) 30 ml PO Q12H PRN PRN Reason: Constipation Metoprolol Succinate (Toprol Xl) 25 mg PO BID [facility] Last Admin: 12/24/18 08:58 Dose: 25 mg Mineral Oil/White Petrolatum (Eucerin Cream) 0 gm TOP BIDPRN PRN PRN Reason: Dry Skin Morphine Sulfate (Morphine) 2 mg SLOW IVP Q1H PRN PRN Reason: Severe Pain (7-10) Last Admin: 12/23/18 15:33 Dose: 2 mg Ondansetron HCl (Zofran Odt) 4 mg SL Q6H PRN PRN Reason: Nausea/Vomiting Ondansetron HCl (Zofran) 4 mg IVP Q6H PRN PRN Reason: Nausea/Vomiting Promethazine HCl (Phenergan) 12.5 mg IM Q4H PRN PRN Reason: Nausea/Vomiting Rosuvastatin Calcium (Crestor) 10 mg PO [facility] Last Admin: 12/23/18 20:48 Dose: 10 mg Senna/Docusate Sodium (Senokot S) 2 tab PO BID PRN PRN Reason: Constipation Sodium Bicarbonate (Bicarbonate, Sodium) 650 mg PO BID [facility] Last Admin: 12/24/18 09:02 Dose: 650 mg Sodium Biphosphate/Sodium Phosphate (Fleet Enema) 133 ml MA ONE PRN PRN Reason: Constipation Stop: 12/24/18 12:55 Sodium Chloride (Flush - Normal Saline) 10 ml IVF PRN PRN PRN Reason: Saline Flush Sodium Chloride ([place] Nasal [place] 0.65%) 0 ml EA NARE QIDPRN PRN PRN Reason: Nasal Congestion Tamsulosin HCl (Flomax) 0.4 mg PO DAILY [facility] Last Admin: 12/24/18 08:58 Dose: 0.4 mg Throat Lozenges (Cepastat Lozenges) 1 julia PO Q2H PRN PRN Reason: Sore Throat Tizanidine HCl (Zanaflex) 4 mg PO Q6H PRN PRN Reason: Muscle Spasm Tramadol HCl (Ultram) 50 mg PO Q6H PRN PRN Reason: Mild Pain (1-3) Last Admin: 12/23/18 14:23 Dose: 50 mg
[2018-12-24] MEDS: tiZANidine HCl 4 MG TAB PO PRN (20:41)
[2018-12-24] MEDS: Rosuvastatin 10 MG TAB PO SCH (20:41)
[2018-12-24] MEDS: cefTRIAXone\\ROCEPHIN 1 GM in Sodium Chloride 0.9% 100 ML IVPB SCH (20:42)
--- NOTE | 2018-12-24 20:43 | CT ---
ABDOMEN CT WITHOUT CONTRAST PELVIC CT WITHOUT CONTRAST 12/24/18 HISTORY: Fever. Evaluate for infection. Previous back surgery on 12/22/18. FINDINGS: ABDOMEN CT: There are small to moderate bilateral effusions with adjacent lung parenchymal opacities likely due t o atelectasis. Pneumonia or aspiration cannot be excluded. Heart is enlarged. No significant pericard ial fluid. There is atherosclerosis of a nonaneurysmal aorta. Gallbladder appears to be unremarkable. Limited evaluation of the solid organs due to the lack of IV contrast. Grossly no solid organ abnorma lity. Small hiatal hernia is noted. No gastrohepatic, retrocrural or periportal lymphadenopathy. Extensive atherosclerosis of the great vessels of the abdomen are noted. There are atherosclerosis of the vessel within the left and right renal pelvis. Bilaterally, no hydronephrosis, nephrolithiasis o r perinephric fat stranding. Bilateral ureters have a normal caliber. No hydroureter, periureteral fa t stranding or ureterolithiasis. Nonspecific stranding of the retroperitoneal fat at the level of the sacrum. Limited evaluation of the alimentary canal due to lack of oral contrast. No evidence of bowel obstruc tion. Ileocecal junction is normal. Normal caliber appendix is identified. There is nonspecific fluid attenuation of the right hemicolon and transverse colon. There is stool attenuation in the left hem icolon. CT PELVIS: No mass, lymphadenopathy, or free air. No significant fluid. Clancy catheter is noted in the urinary b ladder. There is soft tissue and air attenuation involving the lumbar spine at the L3, L4 levels which is pre sumed to be postoperative change. Laminectomy defect is identified. Additional laminectomy defect is noted at L5, likely due to remote surgery. IMPRESSION: 1. Presumed postoperative changes with soft tissue and air attenuation at the L3 and L4 level. C orrelate with patient's surgery. 2. Small amount of nonspecific fluid in the retroperitoneum at the level of the S1 level. Findin gs may be postoperative. If there is concern for infection at the level of surgery, general surgical consultation is recommended. 3. Bilateral effusion with adjacent parenchymal changes as described above. Possibility of aspir ation or pneumonia cannot be completely excluded. POS: [facility]
[2018-12-25] MEDS: Amlodipine 10 MG TAB PO SCH (08:01)
[2018-12-25] MEDS: Tamsulosin HCl 0.4 MG CAP PO SCH (08:01)
[2018-12-25] MEDS: Sodium Bicarbonate Tab 325 MG TAB PO SCH ×2 (08:01→20:02)
[2018-12-25] MEDS: Furosemide 40 MG TAB PO SCH (08:01)
--- NOTE | 2018-12-25 08:42 | PDOC.PN ---
- Subjective Encounter Start Date: 12/25/18 Encounter Start Time: 07:10 Patient seen and examined. No new complaints. No overnight events - Objective MAR Reviewed: Yes Vital Signs & Weight: Vital Signs (12 hours) Temp Pulse Resp BP BP Pulse Ox 12/25/18 08:01 84 126/66 12/25/18 06:51 96 12/25/18 06:48 84 18 96 12/25/18 00:48 68 16 99 12/25/18 00:39 98.1 F 70 16 125/67 98 12/24/18 21:38 98.7 F Weight Weight 170 lb I&O: 12/24/18 12/25/18 12/26/18 06:59 06:59 06:59 Intake Total 650 720 Output Total 2100 700 Balance -1450 20 Result Diagrams: 12/24/18 07:39 12/24/18 07:39 Additional Labs: Accuchecks 12/25/18 12/24/18 12/24/18 04:53 21:38 20:41 POC Glucose 132 H 135 H 135 H 12/24/18 12/24/18 12/24/18 16:38 11:27 08:44 POC Glucose 131 H 210 H 229 H Radiology Reviewed by me: Yes (CT abdomen reviewed) Phys Exam - Physical Examination Constitutional: NAD HEENT: PERRLA, moist MMs, sclera anicteric Neck: no JVD, supple Respiratory: no wheezing, no rales, no rhonchi Cardiovascular: RRR, no significant murmur, no rub Gastrointestinal: soft, non-tender, no distention, positive bowel sounds Musculoskeletal: no edema, pulses present Neurological: non-focal, normal sensation, moves all 4 limbs Lymphatic: no nodes Psychiatric: normal affect, A&O x 3 Skin: no rash, normal turgor Dx/Plan (1) Acute urinary retention Code(s): R33.8 - OTHER RETENTION OF URINE Status: Acute (2) Hypoglycemia associated with type 2 diabetes mellitus Code(s): E11.649 - TYPE 2 DIABETES MELLITUS WITH HYPOGLYCEMIA WITHOUT COMA Status: Acute (3) S/P lumbar laminectomy Code(s): Z98.890 - OTHER SPECIFIED POSTPROCEDURAL STATES Status: Acute (4) Dyslipidemia Code(s): E78.5 - HYPERLIPIDEMIA, UNSPECIFIED Status: Chronic (5) Hypertension Code(s): I10 - ESSENTIAL (PRIMARY) HYPERTENSION Status: Chronic (6) UTI (urinary tract infection) Status: Acute (7) Anemia, normocytic normochromic Code(s): D64.9 - ANEMIA, UNSPECIFIED Status: Acute (8) Diabetes type 2, uncontrolled Code(s): E11.65 - TYPE 2 DIABETES MELLITUS WITH HYPERGLYCEMIA Status: Chronic - Plan cont current plan of care, plan discussed w/ family, continue antibiotics * continue rocephin and levaquin. * ID consulted * if no fever today and tomorrow, then will consider discharge * medication reviewed as below * symptomatic treatment * discussed with Review of Systems - Review of Systems ENT: negative: Ear Pain, Ear Discharge, Nose Pain, Nose Discharge, Nose Congestion, Mouth Pain, Mouth Swelling, Throat Pain, Throat Swelling, Other Respiratory: negative: Cough, Dry, Shortness of Breath, Hemoptysis, SOB with Excertion, Pleuritic Pain, Sputum, Wheezing Cardiovascular: negative: chest pain, palpitations, orthopnea, paroxysmal nocturnal dyspnea, edema, light headedness, other Gastrointestinal: negative: Nausea, Vomiting, Abdominal Pain, Diarrhea, Constipation, Melena, Hematochezia, Other Genitourinary: negative: Dysuria, Frequency, Incontinence, Hematuria, Retention , Other Musculoskeletal: negative: Neck Pain, Shoulder Pain, Arm Pain, Back Pain, Hand Pain, Leg Pain, Foot Pain, Other Skin: negative: Rash, Lesions, Jamie, Bruising, Other - Medications/Allergies Allergies/Adverse Reactions: Allergies Allergy/AdvReac Type Severity Reaction Status Date / Time No Known Allergies Allergy Verified 12/21/18 23:17 Medications: Current Medications Acetaminophen (Tylenol) 650 mg PO Q4H PRN PRN Reason: Headache/Fever or Pain Last Admin: 12/24/18 16:57 Dose: 650 mg Acetaminophen/Codeine Phosphate (Tylenol #3) 1 tab PO Q3H PRN PRN Reason: Mild Pain (1-3) Hydrocodone Bitart/Acetaminophen ([place] 7.5/325) 1 tab PO Q4H PRN PRN Reason: Moderate Pain (4-6) Last Admin: 12/24/18 20:41 Dose: 1 tab Al Hydroxide/Mg Hydroxide (Maalox) 30 ml PO Q4H PRN PRN Reason: Indigestion Albuterol/Ipratropium (Duoneb) 3 ml NEB [id number] [facility] Last Admin: 12/25/18 06:48 Dose: 3 ml Amlodipine Besylate (Norvasc) 10 mg PO DAILY [facility] Last Admin: 12/25/18 08:01 Dose: 10 mg Artificial Tears (Tears Naturale) 2 drop EA EYE PRN PRN PRN Reason: Dry Eyes Bisacodyl (Dulcolax) 10 mg NV Q12H PRN PRN Reason: Constipation Dextrose/Water (Dextrose 50%) 25 gm SLOW IVP PRN PRN PRN Reason: Hypoglycemia Furosemide (Lasix) 40 mg PO DAILY [facility] Last Admin: 12/25/18 08:01 Dose: 40 mg Glucagon (Glucagon) 1 mg IM PRN PRN PRN Reason: Hypoglycemia Guaifenesin (Robitussin Sf) 200 mg PO Q4H PRN PRN Reason: Cough Hydralazine HCl (Apresoline) 10 mg SLOW IVP Q4H PRN PRN Reason: SBP > 180 and HR < 70 Dextrose/Water (D5w) 1,000 mls @ 0 mls/hr IV .Q0M PRN PRN Reason: Hypoglycemia Insulin Glargine 15 units/ (Miscellaneous Medication) 0.15 mls @ 0 mls/hr SC HS [facility] Last Admin: 12/24/18 20:42 Dose: 0.15 mls Insulin Glargine 15 units/ (Miscellaneous Medication) 0.15 mls @ 0 mls/hr SC QAM [facility] Last Admin: 12/24/18 08:59 Dose: 0.15 mls Ceftriaxone Sodium 1 gm/ (Sodium Chloride) 100 mls @ 200 mls/hr IVPB Q24HR [facility] Last Admin: 12/24/18 20:42 Dose: 100 mls Levofloxacin 500 mg/ Device 100 mls @ 100 mls/hr IVPB Q2DAYS [facility] Last Admin: 12/24/18 11:33 Dose: 100 mls Insulin Human Lispro (Humalog) 8 units SC TID-WM [facility] Last Admin: 12/24/18 19:16 Dose: Not Given Insulin Human Lispro (Humalog) 0 units SC .MODERATE SLIDING SC PRN; Protocol PRN Reason: MODERATE SLIDING SCALE Last Admin: 12/24/18 04:42 Dose: 4 unit Loperamide HCl (Imodium) 2 mg PO PRN PRN PRN Reason: Diarrhea/Loose Stools Loratadine (Claritin) 10 mg PO DAILYPRN PRN PRN Reason: Sinus Symptoms Magnesium Hydroxide (Milk Of Magnesium) 30 ml PO Q12H PRN PRN Reason: Constipation Metoprolol Succinate (Toprol Xl) 25 mg PO BID [facility] Last Admin: 12/25/18 08:01 Dose: 25 mg Mineral Oil/White Petrolatum (Eucerin Cream) 0 gm TOP BIDPRN PRN PRN Reason: Dry Skin Morphine Sulfate (Morphine) 2 mg SLOW IVP Q1H PRN PRN Reason: Severe Pain (7-10) Last Admin: 12/23/18 15:33 Dose: 2 mg Ondansetron HCl (Zofran Odt) 4 mg SL Q6H PRN PRN Reason: Nausea/Vomiting Ondansetron HCl (Zofran) 4 mg IVP Q6H PRN PRN Reason: Nausea/Vomiting Promethazine HCl (Phenergan) 12.5 mg IM Q4H PRN PRN Reason: Nausea/Vomiting Rosuvastatin Calcium (Crestor) 10 mg PO [facility] Last Admin: 12/24/18 20:41 Dose: 10 mg Senna/Docusate Sodium (Senokot S) 2 tab PO BID PRN PRN Reason: Constipation Sodium Bicarbonate (Bicarbonate, Sodium) 650 mg PO BID [facility] Last Admin: 12/25/18 08:01 Dose: 650 mg Sodium Chloride (Flush - Normal Saline) 10 ml IVF PRN PRN PRN Reason: Saline Flush Last Admin: 12/24/18 20:42 Dose: 10 ml Sodium Chloride ([place] Nasal [place] 0.65%) 0 ml EA NARE QIDPRN PRN PRN Reason: Nasal Congestion Tamsulosin HCl (Flomax) 0.4 mg PO DAILY [facility] Last Admin: 12/25/18 08:01 Dose: 0.4 mg Throat Lozenges (Cepastat Lozenges) 1 julia PO Q2H PRN PRN Reason: Sore Throat Tizanidine HCl (Zanaflex) 4 mg PO Q6H PRN PRN Reason: Muscle Spasm Last Admin: 12/24/18 20:41 Dose: 4 mg Tramadol HCl (Ultram) 50 mg PO Q6H PRN PRN Reason: Mild Pain (1-3) Last Admin: 12/23/18 14:23 Dose: 50 mg
[2018-12-25] MEDS: Insulin Glargine 15 UNITS in Pre-Filled Syringe 1 EACH SC SCH ×2 (10:01→20:03)
[2018-12-25] MEDS: HumaLOG 300 UNITS/3 ML VIAL SC SCH ×3 (10:01→17:00)
[2018-12-25] MEDS: Acetaminophen 325 MG TAB PO PRN (15:52)
[2018-12-25] MEDS ORDERED: Vancomycin HCl 1 GM in Premix Bag 1 BAG IVPB SCH (16:15)
--- NOTE | 2018-12-25 19:43 | CON ---
DATE OF CONSULTATION: 12/25/2018 REASON FOR CONSULTATION: Fever. HISTORY OF PRESENT ILLNESS: An 83-year-old with history of type 2 diabetes, hypertension, coronary artery disease with bypass graft surgery, and chronic low back pain, who underwent laminectomy by Dr. Coats on December 21 for lumbar stenosis and radiculopathy. Procedure was a laminectomy, facetectomy, and foraminotomy, but no instrumentation. The patient has developed a cough, some wheezing and fever. Still has moderate pain in the back area. 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 No sore throat, odynophagia or dysphagia. No toothache. No sputum production. He did have abdominal distention, but no abdominal pain. He did have urinary retention , which required Clancy catheterization. No other joint symptoms. PAST MEDICAL HISTORY: Includes type 2 diabetes, hypertension, coronary artery disease, chronic back pain with spinal stenosis. SOCIAL HISTORY: Never smoker. . Lives in [place] with . ALLERGIES: NONE. FAMILY HISTORY: Noncontributory. CURRENT MEDICATIONS: 1. Maalox. 2. DuoNeb. 3. Norvasc. 4. Ceftriaxone. 5. Vancomycin. 6. Insulin. 7. Levofloxacin. PHYSICAL EXAMINATION: VITAL SIGNS: T-max has been ranging from 100.9 to 103 since the , BP 150/66 , pulse 93, respirations 18, and O2 saturation 96%. GENERAL: Appears a little bit diaphoretic. He is oriented, no acute distress. SKIN: Shows mild erythema around the incision site, still has the stitches in place. Mild to moderate tenderness. No drainage. The patient has a peripheral IV access and a Clancy catheter. No lymphadenopathy. HEENT: Ocular movements conjugate. Pupil is 2 mm left side and 1 mm right side. Conjunctivae normal. Oral cavity moist. Still quite a few teeth in place, some decay. NECK: Supple. No jugular vein distention. LUNGS: Expiratory wheezing, right and left side. No crackles. HEART: S1 and S2. Regular rate. No S3 or S4. ABDOMEN: Soft, distended, but not tender, tympanitic. No evidence of ascites. GENITAL: Normal except for Clancy catheter. No bladder distention. EXTREMITIES: No joint inflammatory activity. Moves extremities equally. Pulses 1+ in dorsalis pedis. Plantar responses are flexor. NEUROLOGIC: Awake, oriented, and follows commands. LABORATORY DATA: White cell count is 12.2 and now is 9.5, hemoglobin 7.3, platelets 93,000, and 75% neutrophils. Sodium 137, creatinine 2.61, and bilirubin 0.6. Transaminases normal. Albumin 3.1. Urinalysis with 11 to 20 wbc's. Microbiology with urine culture no growth at 48 hours. Blood cultures no growth at 48 hours. There is an abdomen and pelvis CT scan from yesterday with postop changes, soft tissue, narrow attenuation of 3 and 4. Small amount of nonspecific fluid in the retroperitoneum at the S1 level. Bilateral pleural effusions with adjacent parenchymal changes. ASSESSMENT: 1. Type 2 diabetes with coronary artery disease. 2. Spinal stenosis with recent laminectomy without instrumentation. 3. Postop fever, wheezing, mild erythema at the operative site with neutrophilia , some bandemia. DISCUSSION: Differential diagnosis includes postop infection with bacteremia versus respiratory tract infection due to influenza virus. Thromboembolism is another consideration since he is not on enoxaparin prophylaxis. I think he cannot have that prescribed at this point in time in view of the spinal surgery. We will check respiratory virus PCR, duplex ultrasound of lower extremities, monitor blood cultures, continue Rocephin and vancomycin. Discontinue levofloxacin. Intraabdominal inflammatory process appears to be less likely. Job ID: [id number] [facility]
[2018-12-25] MEDS: Rosuvastatin 10 MG TAB PO SCH (20:02)
[2018-12-25] MEDS: tiZANidine HCl 4 MG TAB PO PRN (20:03)
[2018-12-25] MEDS: cefTRIAXone\\ROCEPHIN 1 GM in Sodium Chloride 0.9% 100 ML IVPB SCH (20:03)
[2018-12-25] MEDS: Diabetic Tussin 200 MG/10 ML UDCUP PO PRN (23:46)
[2018-12-26] MEDS: Acetaminophen 325 MG TAB PO PRN ×2 (00:08→20:52)
[2018-12-26] MEDS: HumaLOG 300 UNITS/3 ML VIAL SC PRN (05:32)
[2018-12-26] MEDS: Amlodipine 10 MG TAB PO SCH (08:45)
[2018-12-26] MEDS: Tamsulosin HCl 0.4 MG CAP PO SCH (08:45)
[2018-12-26] MEDS: Furosemide 40 MG TAB PO SCH (08:45)
[2018-12-26] MEDS: Insulin Glargine 15 UNITS in Pre-Filled Syringe 1 EACH SC SCH ×2 (08:45→21:00)
[2018-12-26] MEDS: HumaLOG 300 UNITS/3 ML VIAL SC SCH ×3 (08:46→16:41)
[2018-12-26] MEDS: Sodium Bicarbonate Tab 325 MG TAB PO SCH ×2 (08:46→20:51)
--- NOTE | 2018-12-26 09:32 | ULT ---
BILATERAL LOWER EXTREMITY VENOUS DOPPLER ULTRASOUND: 12/25/18 HISTORY: Immobilization, wheezing, fever, assess for DVT. TECHNIQUE: Multiplanar hubbard scale sonographic imaging of the venous structures bilateral lower extremities with color flow and spectral analysis. FINDINGS: Bilateral common femoral veins, greater saphenous veins, profunda femoral veins, femoral veins, popli teal veins and posterior tibial veins are patent. There is normal blood flow, augmentation, and compr ession within the deep venous system bilaterally. No evidence for DVT on either side. IMPRESSION: No evidence for deep venous thrombosis of either lower extremity. POS: [facility]
[2018-12-26] MEDS ORDERED: Oseltamivir 75 MG CAP PO SCH (09:45)
[2018-12-26 09:49] LABS: Hemoglobin 7.1 g/dL (14.0-18.0); Mean Corpuscular HGB CONC 32.6 g/dL (32.0-36.0); Mean Corpuscular Volume 98.1 fL (78.0-98.0); Mean Platelet Volume 11.1 fL (7.4-10.4); Platelet Count 113 thou/uL (130-400); RBC Distribution Width 20.7 % (11.5-14.5); Red Blood Cell (RBC) Count 2.23 mill/uL (4.70-6.10); White Blood Cell (WBC) Count 4.5 thou/uL (4.8-10.8)
[2018-12-26 09:54] LABS: Anion Gap 17 mmol/L (10-20); BUN (Urea Nitrogen) 82 mg/dL (8.4-25.7); Calc. Creatinine Clearance 18 mL/min (70-130); Calcium 7.9 mg/dL (7.8-10.44); Carbon Dioxide 25 mmol/L (23-31); Chloride 96 mmol/L (98-107); Estimated GFR-MDRD 17; Glucose 166 mg/dL (83-110); Phosphorus 5.9 mg/dL (2.3-4.7); Potassium 3.9 mmol/L (3.5-5.1); Sodium 134 mmol/L (136-145)
[2018-12-26 10:06] LABS: Band 2 % (5-11); Elliptocytes SLIGHT = 2-5 cells (100X) (0-1/hpf); Hypochromia SLIGHT = 6-15 cells (100X) (0-5/hpf); MDiff Complete? YES; Microcytosis MODERATE=15-30 cells (100X) (0-5/hpf); Monocytes 14 % (0-10); Neutrophil 79 % (42-75); Platelet Morphology Comment Appears Decreased; Reactive Lymphocytes 5 % (0-10); Schistocytes SLIGHT = 2-5 cells (100X) (0-1/hpf)
--- NOTE | 2018-12-26 12:40 | PDOC.PN ---
- Subjective Encounter Start Date: 12/26/18 Encounter Start Time: 09:15 Patient seen and examined. No new complaints. No overnight events - Objective MAR Reviewed: Yes Vital Signs & Weight: Vital Signs (12 hours) Temp Pulse Resp BP BP Pulse Ox 12/26/18 08:45 89 141/69 H 12/26/18 08:00 99.3 F 89 20 141/69 H 93 L 12/26/18 06:50 79 16 97 12/26/18 04:42 99.1 F 86 18 137/70 93 L Weight Weight 170 lb I&O: 12/25/18 12/26/18 12/27/18 06:59 06:59 06:59 Intake Total 720 1950 Output Total 1050 1050 Balance -330 900 Result Diagrams: 12/26/18 09:24 12/26/18 09:24 Additional Labs: Accuchecks 12/26/18 12/25/18 11:12 16:12 POC Glucose 208 H 91 Phys Exam - Physical Examination Constitutional: NAD HEENT: PERRLA, moist MMs, sclera anicteric Neck: no JVD, supple Respiratory: no wheezing, no rales, no rhonchi Cardiovascular: RRR, no significant murmur, no rub Gastrointestinal: soft, non-tender, no distention, positive bowel sounds Musculoskeletal: no edema, pulses present Neurological: non-focal, normal sensation, moves all 4 limbs Lymphatic: no nodes Psychiatric: normal affect, A&O x 3 Skin: no rash, normal turgor Dx/Plan (1) Acute urinary retention Code(s): R33.8 - OTHER RETENTION OF URINE Status: Acute (2) Hypoglycemia associated with type 2 diabetes mellitus Code(s): E11.649 - TYPE 2 DIABETES MELLITUS WITH HYPOGLYCEMIA WITHOUT COMA Status: Acute (3) S/P lumbar laminectomy Code(s): Z98.890 - OTHER SPECIFIED POSTPROCEDURAL STATES Status: Acute (4) Dyslipidemia Code(s): E78.5 - HYPERLIPIDEMIA, UNSPECIFIED Status: Chronic (5) Hypertension Code(s): I10 - ESSENTIAL (PRIMARY) HYPERTENSION Status: Chronic (6) UTI (urinary tract infection) Status: Acute (7) Anemia, normocytic normochromic Code(s): D64.9 - ANEMIA, UNSPECIFIED Status: Acute (8) Diabetes type 2, uncontrolled Code(s): E11.65 - TYPE 2 DIABETES MELLITUS WITH HYPERGLYCEMIA Status: Chronic (9) Influenza A Code(s): J10.1 - FLU DUE TO OTH IDENT INFLUENZA VIRUS W OTH RESP MANIFEST Status: Acute - Plan cont current plan of care, plan discussed w/ family, continue antibiotics, PT/OT , case management social worker * medication reviewed as below * symptomatic treatment * add tamiflu * continue rocephin and vancomycin. * repeat labs tomorrow Review of Systems - Review of Systems Constitutional: fever, weakness. negative: chills, sweats, malaise, other ENT: negative: Ear Pain, Ear Discharge, Nose Pain, Nose Discharge, Nose Congestion, Mouth Pain, Mouth Swelling, Throat Pain, Throat Swelling, Other Respiratory: Cough. negative: Dry, Shortness of Breath, Hemoptysis, SOB with Excertion, Pleuritic Pain, Sputum, Wheezing Cardiovascular: negative: chest pain, palpitations, orthopnea, paroxysmal nocturnal dyspnea, edema, light headedness, other Gastrointestinal: negative: Nausea, Vomiting, Abdominal Pain, Diarrhea, Constipation, Melena, Hematochezia, Other Genitourinary: negative: Dysuria, Frequency, Incontinence, Hematuria, Retention , Other Musculoskeletal: negative: Neck Pain, Shoulder Pain, Arm Pain, Back Pain, Hand Pain, Leg Pain, Foot Pain, Other Skin: negative: Rash, Lesions, Jamie, Bruising, Other - Medications/Allergies Allergies/Adverse Reactions: Allergies Allergy/AdvReac Type Severity Reaction Status Date / Time No Known Allergies Allergy Verified 12/21/18 23:17 Medications: Current Medications Acetaminophen (Tylenol) 650 mg PO Q4H PRN PRN Reason: Headache/Fever or Pain Last Admin: 12/26/18 00:08 Dose: 650 mg Acetaminophen/Codeine Phosphate (Tylenol #3) 1 tab PO Q3H PRN PRN Reason: Mild Pain (1-3) Hydrocodone Bitart/Acetaminophen ([place] 7.5/325) 1 tab PO Q4H PRN PRN Reason: Moderate Pain (4-6) Last Admin: 12/24/18 20:41 Dose: 1 tab Al Hydroxide/Mg Hydroxide (Maalox) 30 ml PO Q4H PRN PRN Reason: Indigestion Albuterol/Ipratropium (Duoneb) 3 ml NEB [id number] ERIC Last Admin: 12/26/18 06:50 Dose: 3 ml Amlodipine Besylate (Norvasc) 10 mg PO DAILY [facility] Last Admin: 12/26/18 08:45 Dose: 10 mg Artificial Tears (Tears Naturale) 2 drop EA EYE PRN PRN PRN Reason: Dry Eyes Bisacodyl (Dulcolax) 10 mg [place] Q12H PRN PRN Reason: Constipation Dextrose/Water (Dextrose 50%) 25 gm SLOW IVP PRN PRN PRN Reason: Hypoglycemia Furosemide (Lasix) 40 mg PO DAILY [facility] Last Admin: 12/26/18 08:45 Dose: 40 mg Glucagon (Glucagon) 1 mg IM PRN PRN PRN Reason: Hypoglycemia Guaifenesin (Robitussin Sf) 200 mg PO Q4H PRN PRN Reason: Cough Last Admin: 12/25/18 23:46 Dose: 200 mg Hydralazine HCl (Apresoline) 10 mg SLOW IVP Q4H PRN PRN Reason: SBP > 180 and HR < 70 Dextrose/Water (D5w) 1,000 mls @ 0 mls/hr IV .Q0M PRN PRN Reason: Hypoglycemia Insulin Glargine 15 units/ (Miscellaneous Medication) 0.15 mls @ 0 mls/hr SC HS [facility] Last Admin: 12/25/18 20:03 Dose: 0.15 mls Insulin Glargine 15 units/ (Miscellaneous Medication) 0.15 mls @ 0 mls/hr SC QAM [facility] Last Admin: 12/26/18 08:45 Dose: 0.15 mls Vancomycin HCl 1 gm/ Device 200 mls @ 200 mls/hr IVPB 1600 [facility] Insulin Human Lispro (Humalog) 8 units SC TID-WM [facility] Last Admin: 12/26/18 11:58 Dose: 8 unit Insulin Human Lispro (Humalog) 0 units SC .MODERATE SLIDING SC PRN; Protocol PRN Reason: MODERATE SLIDING SCALE Last Admin: 12/26/18 05:32 Dose: 6 unit Loperamide HCl (Imodium) 2 mg PO PRN PRN PRN Reason: Diarrhea/Loose Stools Loratadine (Claritin) 10 mg PO DAILYPRN PRN PRN Reason: Sinus Symptoms Magnesium Hydroxide (Milk Of Magnesium) 30 ml PO Q12H PRN PRN Reason: Constipation Metoprolol Succinate (Toprol Xl) 25 mg PO BID [facility] Last Admin: 12/26/18 08:45 Dose: 25 mg Mineral Oil/White Petrolatum (Eucerin Cream) 0 gm TOP BIDPRN PRN PRN Reason: Dry Skin Miscellaneous Medication (Pharmacy To Dose) 0 each IVPB PRN PRN PRN Reason: PHARM TO DOSE VANC Morphine Sulfate (Morphine) 2 mg SLOW IVP Q1H PRN PRN Reason: Severe Pain (7-10) Last Admin: 12/23/18 15:33 Dose: 2 mg Ondansetron HCl (Zofran Odt) 4 mg SL Q6H PRN PRN Reason: Nausea/Vomiting Ondansetron HCl (Zofran) 4 mg IVP Q6H PRN PRN Reason: Nausea/Vomiting Oseltamivir Phosphate (Tamiflu) 75 mg PO DAILY [facility] Stop: 01/05/19 09:01 Promethazine HCl (Phenergan) 12.5 mg IM Q4H PRN PRN Reason: Nausea/Vomiting Rosuvastatin Calcium (Crestor) 10 mg PO [facility] Last Admin: 12/25/18 20:02 Dose: 10 mg Senna/Docusate Sodium (Senokot S) 2 tab PO BID PRN PRN Reason: Constipation Sodium Bicarbonate (Bicarbonate, Sodium) 650 mg PO BID [facility] Last Admin: 12/26/18 08:46 Dose: 650 mg Sodium Chloride (Flush - Normal Saline) 10 ml IVF PRN PRN PRN Reason: Saline Flush Last Admin: 12/25/18 20:03 Dose: 10 ml Sodium Chloride ([place] Nasal [place] 0.65%) 0 ml EA NARE QIDPRN PRN PRN Reason: Nasal Congestion Tamsulosin HCl (Flomax) 0.4 mg PO DAILY [facility] Last Admin: 12/26/18 08:45 Dose: 0.4 mg Throat Lozenges (Cepastat Lozenges) 1 julia PO Q2H PRN PRN Reason: Sore Throat Tizanidine HCl (Zanaflex) 4 mg PO Q6H PRN PRN Reason: Muscle Spasm Last Admin: 12/25/18 20:03 Dose: 4 mg Tramadol HCl (Ultram) 50 mg PO Q6H PRN PRN Reason: Mild Pain (1-3) Last Admin: 12/23/18 14:23 Dose: 50 mg
[2018-12-26] MEDS ORDERED: Vancomycin HCl 1 GM in Premix Bag 1 BAG IVPB SCH (14:00)
[2018-12-26 15:21] LABS: Vancomycin, Random 9.9 ug/mL (See Comment)
[2018-12-26] MEDS: Vancomycin HCl 1 GM in Premix Bag 1 BAG IVPB SCH (17:14)
[2018-12-26] MEDS: Rosuvastatin 10 MG TAB PO SCH (20:51)
--- NOTE | 2018-12-26 21:25 | RAD ---
FRONTAL RADIOGRAPH CHEST: 12/26/2018 HISTORY: Short of breath. COMPARISON: 12/23/2018 FINDINGS: There is pulmonary vascular congestion and perihilar interstitial prominence, with peribronchial cuff ing, slightly worsened. There is mild hazy ground glass opacity in both lung bases, left greater gagandeep n right, and in the mid right lung zone, slightly worsened. IMPRESSION: Findings suggesting interval development of interstitial pulmonary edema. recommend follow-up imagin g following treatment to document resolution. POS: [facility]
--- NOTE | 2018-12-26 21:26 | RAD ---
PORTABLE KUB SUPINE: 12/26/2018 HISTORY: Abdominal distention. FINDINGS: Supine imaging limits assessment for free intraperitoneal air and small bowel obstruction. There is mild gaseous prominence of bowel within the mid abdomen, suggesting a combination of gastric gas and large bowel gas. There is prominent multilevel lower lumbar spine degenerative change. IMPRESSION: Mild gaseous prominence of the stomach and colon. POS: [facility]
[2018-12-27] MEDS: Diabetic Tussin 200 MG/10 ML UDCUP PO PRN (01:53)
[2018-12-27 06:11] LABS: #Lymphocytes 0.5 thou/uL (1.20-3.40); #Monocytes 0.5 thou/uL (0.11-0.59); #Neutrophils 2.6 thou/uL (1.40-6.50); %Basophils 0.3 % (0.0-1.0); %Eosinophils 0.9 % (0.0-10.0); %Lymphocytes 13.2 % (21.0-51.0); %Monocytes 14.8 % (0.0-10.0); %Neutrophils 70.8 % (42.0-75.0); Hemoglobin 6.9 g/dL (14.0-18.0); Mean Corpuscular HGB CONC 31.4 g/dL (32.0-36.0); Mean Corpuscular Hemoglobin 31.6 pg (27.0-31.0); Mean Platelet Volume 10.8 fL (7.4-10.4); Platelet Count 103 thou/uL (130-400); RBC Distribution Width 20.4 % (11.5-14.5); Red Blood Cell (RBC) Count 2.19 mill/uL (4.70-6.10); White Blood Cell (WBC) Count 3.7 thou/uL (4.8-10.8)
[2018-12-27 06:25] LABS: Lactic Acid 0.7 mmol/L (0.5-2.2)
[2018-12-27 06:30] LABS: Anion Gap 18 mmol/L (10-20); BUN (Urea Nitrogen) 90 mg/dL (8.4-25.7); Calc. Creatinine Clearance 16 mL/min (70-130); Calcium 7.9 mg/dL (7.8-10.44); Carbon Dioxide 23 mmol/L (23-31); Chloride 98 mmol/L (98-107); Estimated GFR-MDRD 15; Iron 8 ug/dL (65-175); Iron Binding Capacity, Total 136 mcg/dL (261-462); Potassium 3.8 mmol/L (3.5-5.1); Sodium 135 mmol/L (136-145)
[2018-12-27 06:32] LABS: ALT (SGPT) 31 U/L (8-55); AST (SGOT) 54 U/L (5-34); Albumin 2.8 g/dL (3.4-4.8); Alkaline Phosphatase 61 U/L (40-150); Bilirubin, Direct 0.2 mg/dL (0.1-0.3); Bilirubin, Total 0.3 mg/dL (0.2-1.2); Protein, Total 5.5 g/dL (5.8-8.1)
[2018-12-27 06:37] LABS: Glucose 59 mg/dL (83-110)
[2018-12-27] MEDS ORDERED: Furosemide 40 MG/4 ML VIAL SLOW IVP SCH (07:15)
[2018-12-27] MEDS ORDERED: Epoetin (ESRD) 20,000 UNITS/ML SC SCH (08:00)
[2018-12-27 08:26] LABS: CKMB 2.9 ng/mL (0-6.6)
[2018-12-27] MEDS ORDERED: Insulin Glargine 6 UNITS in Pre-Filled Syringe 1 EACH SC SCH ×2 (09:00→21:00)
[2018-12-27] MEDS: Amlodipine 10 MG TAB PO SCH (10:19)
[2018-12-27] MEDS: Cyanocobalamin (Vitamin B-12) 1,000 MCG TAB PO SCH (10:19)
[2018-12-27] MEDS: Tamsulosin HCl 0.4 MG CAP PO SCH (10:19)
[2018-12-27] MEDS: Folic Acid 1 MG TAB PO SCH (10:20)
[2018-12-27] MEDS: Oseltamivir 75 MG CAP PO SCH (10:21)
--- NOTE | 2018-12-27 10:31 | PDOC.PN ---
- Subjective Encounter Start Date: 12/27/18 Encounter Start Time: 07:20 pt is hypoxic this morning, has dyspnea and wheezing, gurgling sound in throat, he has hypoglycemia and his po intake is poor, no fever this morning - Objective MAR Reviewed: Yes Vital Signs & Weight: Vital Signs (12 hours) Temp Pulse Resp BP BP Pulse Ox 12/27/18 10:19 80 142/63 H 12/27/18 08:00 98.5 F 80 18 142/63 H 96 12/27/18 07:33 90 L 12/27/18 04:01 98.0 F 80 22 H 135/63 95 12/27/18 00:35 96 22 H 94 L 12/26/18 23:25 99.7 F H 91 24 H 132/58 L 96 12/26/18 22:30 99.1 F 92 22 H 93 L Weight Weight 170 lb I&O: 12/26/18 12/27/18 12/28/18 06:59 06:59 06:59 Intake Total 1950 340 Output Total 1050 875 Balance 900 -535 Result Diagrams: 12/27/18 05:41 12/27/18 05:41 Additional Labs: Accuchecks 12/27/18 12/26/18 12/26/18 06:45 16:16 11:12 POC Glucose 60 L 104 208 H 12/26/18 12/25/18 04:40 19:49 POC Glucose 265 H 189 H Radiology Reviewed by me: Yes EKG Reviewed by me: Yes Phys Exam - Physical Examination Constitutional: NAD HEENT: PERRLA, moist MMs, sclera anicteric Neck: full ROM Respiratory: wheezing present basal rales Cardiovascular: RRR, no significant murmur Gastrointestinal: soft, non-tender, no distention, positive bowel sounds Musculoskeletal: no edema, pulses present Neurological: non-focal Lymphatic: no nodes Psychiatric: normal affect Skin: no rash, normal turgor Dx/Plan (1) Acute urinary retention Code(s): R33.8 - OTHER RETENTION OF URINE Status: Acute Comment: with guzmán + (2) Hypoglycemia associated with type 2 diabetes mellitus Code(s): E11.649 - TYPE 2 DIABETES MELLITUS WITH HYPOGLYCEMIA WITHOUT COMA Status: Acute (3) S/P lumbar laminectomy Code(s): Z98.890 - OTHER SPECIFIED POSTPROCEDURAL STATES Status: Acute (4) Dyslipidemia Code(s): E78.5 - HYPERLIPIDEMIA, UNSPECIFIED Status: Chronic (5) Hypertension Code(s): I10 - ESSENTIAL (PRIMARY) HYPERTENSION Status: Chronic (6) UTI (urinary tract infection) Status: Acute (7) Anemia, normocytic normochromic Code(s): D64.9 - ANEMIA, UNSPECIFIED Status: Acute Comment: renal disease and chronic disease (8) Diabetes type 2, uncontrolled Code(s): E11.65 - TYPE 2 DIABETES MELLITUS WITH HYPERGLYCEMIA Status: Chronic Comment: labile control (9) Influenza A Code(s): J10.1 - FLU DUE TO OTH IDENT INFLUENZA VIRUS W OTH RESP MANIFEST Status: Acute (10) Acute on chronic diastolic ACC/AHA stage C congestive heart failure Code(s): I50.33 - ACUTE ON CHRONIC DIASTOLIC (CONGESTIVE) HEART FAILURE Status : Acute (11) Acute respiratory failure with hypoxemia Code(s): J96.01 - ACUTE RESPIRATORY FAILURE WITH HYPOXIA Status: Acute (12) NSTEMI (non-ST elevated myocardial infarction) Code(s): I21.4 - NON-ST ELEVATION (NSTEMI) MYOCARDIAL INFARCTION Status: Acute (13) Pancytopenia Code(s): D61.818 - OTHER PANCYTOPENIA Status: Acute - Plan cont current plan of care, plan discussed w/ family, continue antibiotics, PT/OT , social services aide, respiratory therapy, incentive spirometry * he has volume overload status, so will give him IV lasix * add folic acid and vitamin B12 for pancytopenia * consult hematology for anemia, his hb is less than 7 but concern for volume overload with PRBC * continue Nephrology for worsening renal function and get renal US * consult cardiology for CHF and get Echo today. * continue vancomycin and tamiflu * oxygen * discussed with family bedside * medication reviewed as below * symptomatic treatment Review of Systems - Review of Systems Constitutional: weakness, malaise. negative: fever, chills, sweats, other Respiratory: Cough, Shortness of Breath, Wheezing. negative: Dry, Hemoptysis, SOB with Excertion, Pleuritic Pain, Sputum Cardiovascular: negative: chest pain, palpitations, orthopnea, paroxysmal nocturnal dyspnea, edema, light headedness, other Gastrointestinal: negative: Nausea, Vomiting, Abdominal Pain, Diarrhea, Constipation, Melena, Hematochezia, Other Genitourinary: negative: Dysuria, Frequency, Incontinence, Hematuria, Retention , Other Musculoskeletal: negative: Neck Pain, Shoulder Pain, Arm Pain, Back Pain, Hand Pain, Leg Pain, Foot Pain, Other Skin: negative: Rash, Lesions, Jamie, Bruising, Other - Medications/Allergies Allergies/Adverse Reactions: Allergies Allergy/AdvReac Type Severity Reaction Status Date / Time No Known Allergies Allergy Verified 12/21/18 23:17 Medications: Current Medications Acetaminophen (Tylenol) 650 mg PO Q4H PRN PRN Reason: Headache/Fever or Pain Last Admin: 12/26/18 20:52 Dose: 650 mg Acetaminophen/Codeine Phosphate (Tylenol #3) 1 tab PO Q3H PRN PRN Reason: Mild Pain (1-3) Hydrocodone Bitart/Acetaminophen ([place] 7.5/325) 1 tab PO Q4H PRN PRN Reason: Moderate Pain (4-6) Last Admin: 12/24/18 20:41 Dose: 1 tab Al Hydroxide/Mg Hydroxide (Maalox) 30 ml PO Q4H PRN PRN Reason: Indigestion Albuterol/Ipratropium (Duoneb) 3 ml NEB [id number] [facility] Last Admin: 12/27/18 07:31 Dose: Not Given Amlodipine Besylate (Norvasc) 10 mg PO DAILY [facility] Last Admin: 12/27/18 10:19 Dose: 10 mg Artificial Tears (Tears Naturale) 2 drop EA EYE PRN PRN PRN Reason: Dry Eyes Bisacodyl (Dulcolax) 10 mg [place] Q12H PRN PRN Reason: Constipation Cyanocobalamin (Vitamin B-12) 1,000 mcg PO DAILY [facility] Last Admin: 12/27/18 10:19 Dose: 1,000 mcg Dextrose/Water (Dextrose 50%) 25 gm SLOW IVP PRN PRN PRN Reason: Hypoglycemia Epoetin Jorden (Procrit) 5,000 units SC NOW [facility] Stop: 12/27/18 12:00 Last Admin: 12/27/18 10:18 Dose: 5,000 units Folic Acid (Folvite) 1 mg PO DAILY [facility] Last Admin: 12/27/18 10:20 Dose: 1 mg Furosemide (Lasix) 40 mg SLOW IVP 0600,1400 [facility] Glucagon (Glucagon) 1 mg IM PRN PRN PRN Reason: Hypoglycemia Guaifenesin (Robitussin Sf) 200 mg PO Q4H PRN PRN Reason: Cough Last Admin: 12/27/18 01:53 Dose: 200 mg Hydralazine HCl (Apresoline) 10 mg SLOW IVP Q4H PRN PRN Reason: SBP > 180 and HR < 70 Dextrose/Water (D5w) 1,000 mls @ 0 mls/hr IV .Q0M PRN PRN Reason: Hypoglycemia Vancomycin HCl 1 gm/ Device 200 mls @ 200 mls/hr IVPB 1600 [facility] Last Admin: 12/26/18 17:14 Dose: 200 mls Insulin Glargine 6 units/ (Miscellaneous Medication) 0.06 mls @ 0 mls/hr SC HS [facility] Insulin Glargine 6 units/ (Miscellaneous Medication) 0.06 mls @ 0 mls/hr SC QAM [facility] Last Admin: 12/27/18 10:20 Dose: Not Given Insulin Human Lispro (Humalog) 0 units SC .MODERATE SLIDING SC PRN; Protocol PRN Reason: MODERATE SLIDING SCALE Last Admin: 12/26/18 05:32 Dose: 6 unit Loperamide HCl (Imodium) 2 mg PO PRN PRN PRN Reason: Diarrhea/Loose Stools Loratadine (Claritin) 10 mg PO DAILYPRN PRN PRN Reason: Sinus Symptoms Magnesium Hydroxide (Milk Of Magnesium) 30 ml PO Q12H PRN PRN Reason: Constipation Methylprednisolone Sodium Succinate (Solu-Medrol) 20 mg IVP Q8HR [facility] Metoprolol Succinate (Toprol Xl) 25 mg PO BID [facility] Last Admin: 12/27/18 10:20 Dose: 25 mg Mineral Oil/White Petrolatum (Eucerin Cream) 0 gm TOP BIDPRN PRN PRN Reason: Dry Skin Miscellaneous Medication (Pharmacy To Dose) 0 each IVPB PRN PRN PRN Reason: PHARM TO DOSE VANC Morphine Sulfate (Morphine) 2 mg SLOW IVP Q1H PRN PRN Reason: Severe Pain (7-10) Last Admin: 12/23/18 15:33 Dose: 2 mg Ondansetron HCl (Zofran Odt) 4 mg SL Q6H PRN PRN Reason: Nausea/Vomiting Ondansetron HCl (Zofran) 4 mg IVP Q6H PRN PRN Reason: Nausea/Vomiting Oseltamivir Phosphate (Tamiflu) 75 mg PO DAILY [facility] Stop: 01/05/19 09:01 Last Admin: 12/27/18 10:21 Dose: 75 mg Promethazine HCl (Phenergan) 12.5 mg IM Q4H PRN PRN Reason: Nausea/Vomiting Rosuvastatin Calcium (Crestor) 10 mg PO HS [facility] Last Admin: 12/26/18 20:51 Dose: 10 mg Senna/Docusate Sodium (Senokot S) 2 tab PO BID PRN PRN Reason: Constipation Sodium Chloride (Flush - Normal Saline) 10 ml IVF PRN PRN PRN Reason: Saline Flush Last Admin: 12/25/18 20:03 Dose: 10 ml Sodium Chloride ([place] Nasal [place] 0.65%) 0 ml EA NARE QIDPRN PRN PRN Reason: Nasal Congestion Sterile Water (Bacteriostatic Water) 1 ml FS PRN PRN PRN Reason: RECONSTITUTION Tamsulosin HCl (Flomax) 0.4 mg PO DAILY [facility] Last Admin: 12/27/18 10:19 Dose: 0.4 mg Throat Lozenges (Cepastat Lozenges) 1 julia PO Q2H PRN PRN Reason: Sore Throat Tizanidine HCl (Zanaflex) 4 mg PO Q6H PRN PRN Reason: Muscle Spasm Last Admin: 12/25/18 20:03 Dose: 4 mg Tramadol HCl (Ultram) 50 mg PO Q6H PRN PRN Reason: Mild Pain (1-3) Last Admin: 12/23/18 14:23 Dose: 50 mg
--- NOTE | 2018-12-27 11:38 | ULT ---
RENAL ULTRASOUND: INDICATIONS: Acute renal failure. FINDINGS: The right kidney measures 9.6 cm in length. There is mild cortical thinning. No mass, cyst, or hydr onephrosis. Cortical echogenicity appears within the normal range. The left kidney measures 11.8 cm. Cortical thickness is better preserved on the left. No hydronephr osis, mass, or cystic lesion identified. Cortical echogenicity has slightly increased. The bladder is unable to be imaged due to positioning. A Clancy catheter is in place, and the bladder is contracted. Incidentally noted is evidence of bilateral pleural effusions. IMPRESSION: 1. Mild cortical thinning in the right kidney. No mass or hydronephrosis identified in either kidne y. 2. Evidence of bilateral pleural effusions. POS: [facility]
[2018-12-27] MEDS: methylPREDNISolone Sod Succ 40 MG VIAL IVP SCH ×2 (13:42→21:45)
[2018-12-27] MEDS: Furosemide 40 MG/4 ML VIAL SLOW IVP SCH (13:45)
[2018-12-27 15:52] LABS: Vancomycin, Random 14.4 ug/mL (See Comment)
[2018-12-27 16:16] LABS: Critical Call Chem Troponin I DECREASED
--- NOTE | 2018-12-27 16:18 | CON ---
DATE OF CONSULTATION: 12/27/2018 REASON FOR CONSULTATION: Positive troponins and shortness of breath. HISTORY OF PRESENT ILLNESS: Mr. Choe is a pleasant 83-year-old white gentleman, who comes to the hospital for a planned laminectomy. He had surgery on the 21 of December after we performed an L3-L4 and an L4-L5 laminectomies with partial facetectomies and foraminotomies. He did well postoperatively until a few days back, he developed a fever, eventually was diagnosed with the flu, was started on Tamiflu. Yesterday evening, he became much more tachypneic and short of breath and he had a chest x-ray that showed interstitial pulmonary edema, so he was started on Lasix. A Clancy catheter was placed. He already feels much better. His breathing has improved. Blood test showed positive troponins and elevated BNP, so Cardiology was consulted for this. PAST MEDICAL HISTORY: 1. Coronary artery disease with previous bypass in 2010. He has not had any problems with his coronary since. 2. Type 2 diabetes. 3. Hypertension. 4. Chronic back pain and spinal stenosis. OUTPATIENT MEDICATIONS: 1. Humalog. 2. Lisinopril. 3. Humulin. 4. Furosemide 40 mg a day. 5. Crestor 10 mg daily. 6. Metoprolol succinate half tablet b.i.d. 7. Aspirin 81 mg a day. ALLERGIES: NO KNOWN DRUG ALLERGIES. SOCIAL HISTORY: No alcohol, tobacco, or drugs. FAMILY HISTORY: No early coronary artery disease. PAST SURGICAL HISTORY: Laminectomies as above. REVIEW OF SYSTEMS: A 12-point review of systems was done and negative unless stated in history of present illness. PHYSICAL EXAMINATION: VITAL SIGNS: Temperature 98, pulse 76, respiratory rate 20, saturating 96% on 2 L nasal cannula, and blood pressure 130/59. GENERAL: Awake, alert, and oriented x3. No distress. HEENT: Normocephalic and atraumatic. NECK: Supple. LUNGS: Have mild crackles at the bases. CARDIOVASCULAR: S1 and S2. No S3 or S4. There is a grade 2/6 systolic murmur at the right upper sternal border. ABDOMEN: Soft. EXTREMITIES: Trace edema. SKIN: Warm and dry. LABORATORY DATA: Laboratory work was reviewed. CBC with a white count of 3.7; hemoglobin of 6.9, down from 7.1, but he has been as low as 6.6 on the day after surgery. Chemistry with a sodium of 135, potassium of 3.8, BUN 90, creatinine 3.97 which is higher than his baseline which is about 2.5 to 2.8. GFR was 15. Glucose was 59 early this morning. Ferritin was very high at 1405. CK-MB was normal. Troponin was 0.65. BNP was 1489. Albumin of 2.8. UA with large amount of blood, trace leukocyte esterase. Beta hydroxybutyrate is negative. Random vancomycin levels are normal. Microbiology shows negative blood cultures, negative urine cultures. RV panel is positive for influenza A H3 type. Chest x-ray was done, showed pulmonary edema. This was last night. Renal ultrasound showed mild cortical thinning in the right kidney. No hydronephrosis. There is bilateral pleural effusions. ASSESSMENT AND PLAN: 1. Acute on chronic diastolic heart failure. Reviewed echocardiogram and his EF is normal at 60% to 65% with no major regional wall motion abnormalities. Most likely, there is accumulating fluid from increased creatinine and inability to urinate from outflow obstruction as well as reduced filtering. 2. Continue antivirals per Dr. Pratt. 3. We would continue Lasix for now. 4. Continue strict in's and out's. 5. [id number] myocardial infarction, most likely demand ischemia. However, we will continue to trend. Thank you for letting us to participate in the care of your patient. We will continue to follow. Job ID: [id number]
[2018-12-27] MEDS: Vancomycin HCl 1 GM in Premix Bag 1 BAG IVPB SCH (16:48)
--- NOTE | 2018-12-27 17:19 | PRG ---
DATE OF SERVICE: 12/27/2018 SUBJECTIVE: Mr. Choe is transferred to the neuro unit because of tachycardia, they did not have beds in tele. Appears a little bit diaphoretic. He is oriented. Little bit tachypneic. No diarrhea. OBJECTIVE: VITAL SIGNS: His T-max 100.2 yesterday. He has been afebrile since. GENERAL: Awake, alert, and oriented. LUNGS: With expiratory wheezing noted. HEART: S1 and S2. Regular rate. ABDOMEN: Soft, not distended. EXTREMITIES: Moves extremities equally. LABORATORY DATA: White cell count 3.7, hemoglobin 6.9, platelets 103,000. Creatinine is 2.97. Ferritin 1405. AST 54. Respiratory virus PCR was positive for influenza A. ASSESSMENT AND DISCUSSION: Type 2 diabetes, spinal stenosis, recent laminectomy and instrumentation, postop fever, wheezing and secondary to influenza A infection. Antibiotics have been discontinued. He will continue oseltamivir for few more days. Job ID: [id number]
[2018-12-27] MEDS: HumaLOG 300 UNITS/3 ML VIAL SC PRN (17:31)
[2018-12-27] MEDS: Rosuvastatin 10 MG TAB PO SCH (21:45)
[2018-12-27] MEDS: Bacteriostatic Water 30 ML VIAL FS PRN (21:46)
--- NOTE | 2018-12-27 22:15 | CON ---
DATE OF CONSULTATION: REASON FOR CONSULTATION: Pancytopenia. HISTORY OF PRESENT ILLNESS: Mr. Choe is a pleasant 83-year-old gentleman, who was admitted to the hospital for a lumbar laminectomy. He had a complicated postoperative course, which included urinary retention,influenza, and pancytopenia. On the day of admission for a surgery, he had a white count of 12.2, hemoglobin of 6.6, and platelet count of 129,000. He has a history of chronic kidney disease 4 with a creatinine of 2.86. The course of his hospital stay, his white count has trended downward and is currently 3.7. He does have 70% neutrophils and 13% lymphocytes. His hemoglobin has been stable around 6.9, his platelet count has been labile and is currently 103,000. He has received 2 units of packed RBCs this admission. [facility], the patient has been anemic at least as far back as 2016, where his hemoglobin was 7.2. He has never received Procrit injections until this hospitalization. He had a recent GI workup approximately two years ago, which was negative. He does complain of shortness of breath and wheezing at this time. No fatigue or back pain. No bleeding or bruising. PAST MEDICAL HISTORY: 1. Diabetes mellitus 2. 2. Hypertension. 3. Coronary artery disease. 4. Spinal stenosis. 5. Anemia of chronic disease. 6. Chronic kidney disease. PAST SURGERY HISTORY: 1. Coronary stent placement. 2. Recent laminectomy. ALLERGIES: NO KNOWN DRUG ALLERGIES. HOME MEDICATIONS: 1. Ecotrin 81 mg daily. 2. Lasix 40 mg daily. 3. Humalog t.i.d. 4. Insulin b.i.d. 5. Lisinopril 40 mg daily. 6. Metoprolol 50 mg b.i.d. 7. Crestor daily. FAMILY HISTORY: Noncontributory. SOCIAL HISTORY: , has several children. Lives in [place] with his . No alcohol, tobacco, or illicit drug use. REVIEW OF SYSTEMS: A 10-point review of systems is negative except for noted in HPI. PHYSICAL EXAMINATION: VITAL SIGNS: Temperature 97.9, pulse is 76, respiratory rate 18, blood pressure is 145/60. He is 98% on 2 L. GENERAL: Well-developed, well-nourished male, in no acute distress. HEENT: Normocephalic and atraumatic. Pupils are equal and reactive to light. NECK: Supple. CV: Regular rate and rhythm. LUNGS: Clear. ABDOMEN: Soft and nontender. Bowel sounds are positive. EXTREMITIES: There is no clubbing, cyanosis, or edema. SKIN: No rash. HEMATOLOGICAL: No petechiae or purpura. NEUROLOGICAL: Nonfocal. PSYCH: The patient is alert, oriented and appropriate. PERTINENT LABS AND X-RAYS: Current WBCs 3.7, hemoglobin 6.9, hematocrit 22, platelet count is 103,000, again 71% neutrophils, 13% lymphocytes. Sodium is 135, potassium 3.8, chloride 98, CO2 is 23, BUN is 90, creatinine 3.97, calcium is 7.9, phosphorus 5.9. Iron is 12, TIBC is 184, iron saturation is 7, ferritin is 1400. C-reactive protein is 25.36. Serum total protein is 5.4, albumin 3.1, globulin 2.3. Folate is 11.5 and B12 is 611. ASSESSMENT: 1. Anemia of chronic disease. 2. Chronic kidney disease 4. 3. Influenza. DISCUSSION: The patient has anemia from chronic kidney disease. He would be an excellent candidate for Procrit in the outpatient setting. He did receive a dose today ordered by [facility] of approximately 5000 units. We would recommend 63516 unit dose weekly in the outpatient setting. The benefits and risks were discussed with both the patient and family. His pancytopenia and low blood platelet counts are consumptive. They were normal a week prior to surgery. He would just need a followup CBC which can be done in our clinic once he is discharged. Case discussed with Dr. Park. Thank you for the consult. Job ID: [id number] [facility]
[2018-12-28] MEDS: methylPREDNISolone Sod Succ 40 MG VIAL IVP SCH ×3 (06:22→21:57)
[2018-12-28] MEDS: Furosemide 40 MG/4 ML VIAL SLOW IVP SCH (06:22)
[2018-12-28] MEDS: Bacteriostatic Water 30 ML VIAL FS PRN ×2 (06:23→21:58)
[2018-12-28] MEDS: HumaLOG 300 UNITS/3 ML VIAL SC PRN ×2 (06:23→18:43)
[2018-12-28 08:17] LABS: Hemoglobin 7.6 g/dL (14.0-18.0); Mean Corpuscular HGB CONC 32.8 g/dL (32.0-36.0); Mean Corpuscular Hemoglobin 32.4 pg (27.0-31.0); Mean Corpuscular Volume 98.7 fL (78.0-98.0); Mean Platelet Volume 11.3 fL (7.4-10.4); Platelet Count 137 thou/uL (130-400); RBC Distribution Width 20.1 % (11.5-14.5); Red Blood Cell (RBC) Count 2.35 mill/uL (4.70-6.10); White Blood Cell (WBC) Count 1.4 thou/uL (4.8-10.8)
[2018-12-28 08:34] LABS: ALT (SGPT) 29 U/L (8-55); AST (SGOT) 39 U/L (5-34); Albumin 2.8 g/dL (3.4-4.8); Alkaline Phosphatase 68 U/L (40-150); Anion Gap 20 mmol/L (10-20); BUN (Urea Nitrogen) 118 mg/dL (8.4-25.7); Bilirubin, Total 0.3 mg/dL (0.2-1.2); Calc. Creatinine Clearance 16 mL/min (70-130); Calcium 8.2 mg/dL (7.8-10.44); Carbon Dioxide 22 mmol/L (23-31); Chloride 97 mmol/L (98-107); Estimated GFR-MDRD 14; Globulin 2.9 g/dL (2.4-3.5); Glucose 318 mg/dL (83-110); Potassium 4.5 mmol/L (3.5-5.1); Protein, Total 5.7 g/dL (5.8-8.1); Sodium 134 mmol/L (136-145)
[2018-12-28 08:43] LABS: Anisocytosis SLIGHT = 6-15 cells (100X) (0-5/hpf); Band 12 % (5-11); Lymphocytes 18 % (21-51); MDiff Complete? YES; Monocytes 12 % (0-10); Neutrophil 58 % (42-75); Platelet Morphology Comment Appears Adequate; Polychromasia SLIGHT = 2-3 cells (100X) (0-2/hpf)
--- NOTE | 2018-12-28 09:35 | PDOC.PN ---
- Subjective Encounter Start Date: 12/28/18 Encounter Start Time: 07:00 today pt is feeling better, less dyspnea, no fever, no chest pain - Objective MAR Reviewed: Yes Vital Signs & Weight: Vital Signs (12 hours) Temp Pulse Resp BP Pulse Ox 12/28/18 08:00 98 F 60 18 109/64 97 12/28/18 07:06 96 12/28/18 04:00 97.9 F 67 16 128/59 L 100 12/28/18 00:00 97.7 F 70 16 134/55 L 100 Weight Weight 176 lb 2 oz I&O: 12/27/18 12/28/18 12/29/18 06:59 06:59 06:59 Intake Total 340 840 Output Total 875 2100 Balance -535 -1260 Result Diagrams: 12/28/18 07:55 12/28/18 07:55 Additional Labs: Accuchecks 12/28/18 12/27/18 12/27/18 05:30 20:26 16:42 POC Glucose 311 H 232 H 199 H 12/27/18 12/26/18 11:10 20:15 POC Glucose 149 H 136 H EKG Reviewed by me: Yes (nsr) Phys Exam - Physical Examination Constitutional: NAD HEENT: PERRLA, moist MMs, sclera anicteric Neck: no JVD, supple Respiratory: no wheezing, no rales, no rhonchi reduced air entry at base Cardiovascular: RRR, no significant murmur, no rub Gastrointestinal: soft, non-tender, no distention, positive bowel sounds Musculoskeletal: no edema, pulses present Neurological: non-focal, normal sensation Lymphatic: no nodes Psychiatric: normal affect, A&O x 3 Skin: no rash, normal turgor Dx/Plan (1) Acute urinary retention Code(s): R33.8 - OTHER RETENTION OF URINE Status: Acute Comment: with guzmán + (2) Hypoglycemia associated with type 2 diabetes mellitus Code(s): E11.649 - TYPE 2 DIABETES MELLITUS WITH HYPOGLYCEMIA WITHOUT COMA Status: Acute (3) S/P lumbar laminectomy Code(s): Z98.890 - OTHER SPECIFIED POSTPROCEDURAL STATES Status: Acute (4) Dyslipidemia Code(s): E78.5 - HYPERLIPIDEMIA, UNSPECIFIED Status: Chronic (5) Hypertension Code(s): I10 - ESSENTIAL (PRIMARY) HYPERTENSION Status: Chronic (6) UTI (urinary tract infection) Status: Acute (7) Anemia, normocytic normochromic Code(s): D64.9 - ANEMIA, UNSPECIFIED Status: Acute Comment: renal disease and chronic disease (8) Diabetes type 2, uncontrolled Code(s): E11.65 - TYPE 2 DIABETES MELLITUS WITH HYPERGLYCEMIA Status: Chronic Comment: labile control (9) Influenza A Code(s): J10.1 - FLU DUE TO OTH IDENT INFLUENZA VIRUS W OTH RESP MANIFEST Status: Acute (10) Acute on chronic diastolic ACC/AHA stage C congestive heart failure Code(s): I50.33 - ACUTE ON CHRONIC DIASTOLIC (CONGESTIVE) HEART FAILURE Status : Acute (11) Acute respiratory failure with hypoxemia Code(s): J96.01 - ACUTE RESPIRATORY FAILURE WITH HYPOXIA Status: Acute (12) NSTEMI (non-ST elevated myocardial infarction) Code(s): I21.4 - NON-ST ELEVATION (NSTEMI) MYOCARDIAL INFARCTION Status: Acute (13) Pancytopenia Code(s): D61.818 - OTHER PANCYTOPENIA Status: Acute (14) Acute worsening of stage 3 chronic kidney disease Code(s): N18.3 - CHRONIC KIDNEY DISEASE, STAGE 3 (MODERATE) Status: Acute (15) Moderate tricuspid regurgitation Code(s): I07.1 - RHEUMATIC TRICUSPID INSUFFICIENCY Status: Acute (16) Pulmonary hypertension Code(s): I27.20 - PULMONARY HYPERTENSION, UNSPECIFIED Status: Acute - Plan cont current plan of care, plan discussed w/ family, PT/OT, 7th grade social studies teacher, respiratory therapy * change lasix PO 40 mg bid * dc vancomycin * continue tamiflu * repeat labs tomorrow * start PT/OT * we recommend rehab if pt agree * medication reviewed as below * symptomatic treatment. Review of Systems - Review of Systems ENT: negative: Ear Pain, Ear Discharge, Nose Pain, Nose Discharge, Nose Congestion, Mouth Pain, Mouth Swelling, Throat Pain, Throat Swelling, Other Respiratory: negative: Cough, Dry, Shortness of Breath, Hemoptysis, SOB with Excertion, Pleuritic Pain, Sputum, Wheezing Cardiovascular: negative: chest pain, palpitations, orthopnea, paroxysmal nocturnal dyspnea, edema, light headedness, other Gastrointestinal: negative: Nausea, Vomiting, Abdominal Pain, Diarrhea, Constipation, Melena, Hematochezia, Other Genitourinary: negative: Dysuria, Frequency, Incontinence, Hematuria, Retention , Other Musculoskeletal: negative: Neck Pain, Shoulder Pain, Arm Pain, Back Pain, Hand Pain, Leg Pain, Foot Pain, Other - Medications/Allergies Allergies/Adverse Reactions: Allergies Allergy/AdvReac Type Severity Reaction Status Date / Time No Known Allergies Allergy Verified 12/21/18 23:17 Medications: Current Medications Acetaminophen (Tylenol) 650 mg PO Q4H PRN PRN Reason: Headache/Fever or Pain Last Admin: 12/26/18 20:52 Dose: 650 mg Acetaminophen/Codeine Phosphate (Tylenol #3) 1 tab PO Q3H PRN PRN Reason: Mild Pain (1-3) Hydrocodone Bitart/Acetaminophen ([place] 7.5/325) 1 tab PO Q4H PRN PRN Reason: Moderate Pain (4-6) Last Admin: 12/24/18 20:41 Dose: 1 tab Al Hydroxide/Mg Hydroxide (Maalox) 30 ml PO Q4H PRN PRN Reason: Indigestion Albuterol/Ipratropium (Duoneb) 3 ml NEB [id number] [facility] Last Admin: 12/28/18 07:05 Dose: Not Given Amlodipine Besylate (Norvasc) 10 mg PO DAILY [facility] Last Admin: 12/27/18 10:19 Dose: 10 mg Artificial Tears (Tears Naturale) 2 drop EA EYE PRN PRN PRN Reason: Dry Eyes Aspirin (Ecotrin) 81 mg PO DAILY [facility] Bisacodyl (Dulcolax) 10 mg [place] Q12H PRN PRN Reason: Constipation Cyanocobalamin (Vitamin B-12) 1,000 mcg PO DAILY [facility] Last Admin: 12/27/18 10:19 Dose: 1,000 mcg Dextrose/Water (Dextrose 50%) 25 gm SLOW IVP PRN PRN PRN Reason: Hypoglycemia Folic Acid (Folvite) 1 mg PO DAILY [facility] Last Admin: 12/27/18 10:20 Dose: 1 mg Furosemide (Lasix) 40 mg PO 0900,1400 [facility] Glucagon (Glucagon) 1 mg IM PRN PRN PRN Reason: Hypoglycemia Guaifenesin (Robitussin Sf) 200 mg PO Q4H PRN PRN Reason: Cough Last Admin: 12/27/18 01:53 Dose: 200 mg Hydralazine HCl (Apresoline) 10 mg SLOW IVP Q4H PRN PRN Reason: SBP > 180 and HR < 70 Dextrose/Water (D5w) 1,000 mls @ 0 mls/hr IV .Q0M PRN PRN Reason: Hypoglycemia Insulin Glargine 15 units/ (Miscellaneous Medication) 0.15 mls @ 0 mls/hr SC HS ERIC Insulin Glargine 15 units/ (Miscellaneous Medication) 0.15 mls @ 0 mls/hr SC QAM [facility] Insulin Human Lispro (Humalog) 0 units SC .MODERATE SLIDING SC PRN; Protocol PRN Reason: MODERATE SLIDING SCALE Last Admin: 12/28/18 06:23 Dose: 8 unit Insulin Human Lispro (Humalog) 6 units SC TID-WM [facility] Loperamide HCl (Imodium) 2 mg PO PRN PRN PRN Reason: Diarrhea/Loose Stools Loratadine (Claritin) 10 mg PO DAILYPRN PRN PRN Reason: Sinus Symptoms Magnesium Hydroxide (Milk Of Magnesium) 30 ml PO Q12H PRN PRN Reason: Constipation Methylprednisolone Sodium Succinate (Solu-Medrol) 20 mg IVP Q8HR [facility] Last Admin: 12/28/18 06:22 Dose: 20 mg Metoprolol Succinate (Toprol Xl) 25 mg PO BID [facility] Last Admin: 12/27/18 21:45 Dose: 25 mg Mineral Oil/White Petrolatum (Eucerin Cream) 0 gm TOP BIDPRN PRN PRN Reason: Dry Skin Miscellaneous Medication (Pharmacy To Dose) 0 each IVPB PRN PRN PRN Reason: PHARM TO DOSE VANC Morphine Sulfate (Morphine) 2 mg SLOW IVP Q1H PRN PRN Reason: Severe Pain (7-10) Last Admin: 12/23/18 15:33 Dose: 2 mg Ondansetron HCl (Zofran Odt) 4 mg SL Q6H PRN PRN Reason: Nausea/Vomiting Ondansetron HCl (Zofran) 4 mg IVP Q6H PRN PRN Reason: Nausea/Vomiting Oseltamivir Phosphate (Tamiflu) 75 mg PO DAILY [facility] Stop: 01/05/19 09:01 Last Admin: 12/27/18 10:21 Dose: 75 mg Promethazine HCl (Phenergan) 12.5 mg IM Q4H PRN PRN Reason: Nausea/Vomiting Rosuvastatin Calcium (Crestor) 10 mg PO HS [facility] Last Admin: 12/27/18 21:45 Dose: 10 mg Senna/Docusate Sodium (Senokot S) 2 tab PO BID PRN PRN Reason: Constipation Sodium Chloride (Flush - Normal Saline) 10 ml IVF PRN PRN PRN Reason: Saline Flush Last Admin: 12/27/18 21:44 Dose: 10 ml Sodium Chloride ([place] Nasal [place] 0.65%) 0 ml EA NARE QIDPRN PRN PRN Reason: Nasal Congestion Sterile Water (Bacteriostatic Water) 1 ml FS PRN PRN PRN Reason: RECONSTITUTION Last Admin: 12/28/18 06:23 Dose: 1 ml Tamsulosin HCl (Flomax) 0.4 mg PO DAILY [facility] Last Admin: 12/27/18 10:19 Dose: 0.4 mg Throat Lozenges (Cepastat Lozenges) 1 julia PO Q2H PRN PRN Reason: Sore Throat Tizanidine HCl (Zanaflex) 4 mg PO Q6H PRN PRN Reason: Muscle Spasm Last Admin: 12/25/18 20:03 Dose: 4 mg Tramadol HCl (Ultram) 50 mg PO Q6H PRN PRN Reason: Mild Pain (1-3) Last Admin: 12/23/18 14:23 Dose: 50 mg
[2018-12-28] MEDS: HumaLOG 300 UNITS/3 ML VIAL SC SCH ×3 (10:01→16:56)
[2018-12-28] MEDS: Insulin Glargine 15 UNITS in Pre-Filled Syringe 1 EACH SC SCH ×2 (10:02→21:58)
[2018-12-28] MEDS: Folic Acid 1 MG TAB PO SCH (10:03)
[2018-12-28] MEDS: Aspirin 81 mg Enteric Coated Tablet PO SCH (10:03)
[2018-12-28] MEDS: Oseltamivir 75 MG CAP PO SCH (10:03)
[2018-12-28] MEDS: Cyanocobalamin (Vitamin B-12) 1,000 MCG TAB PO SCH (10:04)
[2018-12-28] MEDS: Tamsulosin HCl 0.4 MG CAP PO SCH (10:04)
[2018-12-28] MEDS: Amlodipine 10 MG TAB PO SCH (10:08)
--- NOTE | 2018-12-28 10:44 | PRG ---
DATE OF SERVICE: 12/28/2018 SUBJECTIVE: Mr. Choe is now 1 week into his hospitalization for lumbar decompression. He is doing well from a neurosurgical standpoint with improvement in his back and leg pain. Unfortunately, he has myriad events that we have had to deal with including the flu along with worsening renal function and concern of elevated troponin, although, I have discussed with Dr. Lino. I have let Dr. Lino know that I would be fine with initiation of a baby aspirin. Again as Dr. Lino was concerned of myocardial demand issues rather than myocardial infarct, his echo demonstrates an ejection fraction of 60%. While he is afebrile with stable hemodynamics, he does have an impressive leukopenia at 1.4. He has longstanding been anemic and this morning, it is 7.6, which frankly is relatively good for him. He does not have thrombocytopenia today, but he has historically. Essentially, he has pancytopenia. I am not really sure as to the etiology perhaps this is driven by his kidney dysfunction. Hematology has seen him. I have discussed his care with the patient and with his and they are appreciative. Job ID: [id number]
[2018-12-28] MEDS: Furosemide 20 MG TAB PO SCH (14:43)
--- NOTE | 2018-12-28 19:41 | RAD ---
CHEST ONE VIEW: 12/28/18 HISTORY: Dyspnea. COMPARISON: 12/26/18. FINDINGS: The cardiac silhouette is magnified and upper limits of normal in size. Pulmonary vasculature remains engorged with patchy areas of parenchymal opacity, overall similar in appearance to the prior study. Partial clearing anterior segment right upper lobe. Mediastinum is midline with aortic calcification and postoperative changes. No evidence of pneumothorax. IMPRESSION: Overall stable radiographic appearance of pulmonary vascular congestion and interstitial edema. POS: CASSIH
--- NOTE | 2018-12-28 19:54 | PDOC.CTH ---
Cardiology Progress Note - Subjective No new issues. Breathing better today. - Objective Vital Signs Temp Pulse Pulse Pulse Resp BP BP 12/28/18 16:56 12/28/18 15:40 98.1 F 70 24 H 12/28/18 13:34 68 73 128/56 L 12/28/18 12:56 12/28/18 12:00 97.8 F 68 20 12/28/18 10:08 71 129/61 12/28/18 09:53 12/28/18 08:00 98 F 60 18 BP BP Pulse Ox 12/28/18 16:56 94 L 12/28/18 15:40 134/79 91 L 12/28/18 13:34 126/58 L 12/28/18 12:56 98 12/28/18 12:00 150/64 H 98 12/28/18 10:08 12/28/18 09:53 97 12/28/18 08:00 109/64 97 Weight 176 lb 2 oz 12/27/18 12/28/18 12/29/18 06:59 06:59 06:59 Intake Total 340 840 720 Output Total 875 2100 1220 Balance -535 -1260 -500 - Physical Examination General/Neuro: alert & oriented x3, NAD Neck: no JVD present Lungs: unlabored respirations Heart: RRR Abdomen: NT/ND Extremities: + edema B (trace) - Telemetry Telemetry Rhythm: NSR - Labs Result Diagrams: 12/28/18 07:55 12/28/18 07:55 Troponin/CKMB CK-MB (CK-2) 2.9 ng/mL (0-6.6) 12/27/18 05:41 Troponin I 0.430 ng/mL (< 0.028) H* 12/27/18 15:09 - Assessment/Plan 1. Acute on chronic diastolic heart failure. 2. ROXANNE on CKD 3. NSTEMI, demand ischemia. 4. Influenza A. 5. Chronic anemia 6. Bandemia. PLAn: - Agree with PO lasix. - Oseltamivir - No new recs.
[2018-12-28] MEDS: Rosuvastatin 10 MG TAB PO SCH (21:57)
[2018-12-29 05:53] LABS: #Lymphocytes 0.3 thou/uL (1.20-3.40); #Monocytes 0.2 thou/uL (0.11-0.59); #Neutrophils 2.3 thou/uL (1.40-6.50); %Eosinophils 0.3 % (0.0-10.0); %Lymphocytes 10.5 % (21.0-51.0); %Monocytes 7.1 % (0.0-10.0); %Neutrophils 82.1 % (42.0-75.0); Hemoglobin 7.8 g/dL (14.0-18.0); Mean Corpuscular HGB CONC 32.9 g/dL (32.0-36.0); Mean Corpuscular Hemoglobin 32.6 pg (27.0-31.0); Mean Corpuscular Volume 98.9 fL (78.0-98.0); Mean Platelet Volume 11.3 fL (7.4-10.4); Platelet Count 171 thou/uL (130-400); RBC Distribution Width 19.9 % (11.5-14.5); Red Blood Cell (RBC) Count 2.38 mill/uL (4.70-6.10); White Blood Cell (WBC) Count 2.8 thou/uL (4.8-10.8)
[2018-12-29] MEDS: Bacteriostatic Water 30 ML VIAL FS PRN (06:12)
[2018-12-29] MEDS: methylPREDNISolone Sod Succ 40 MG VIAL IVP SCH (06:12)
[2018-12-29] MEDS: HumaLOG 300 UNITS/3 ML VIAL SC PRN (06:14)
[2018-12-29 06:15] LABS: Albumin 2.9 g/dL (3.4-4.8); Anion Gap 17 mmol/L (10-20); Calc. Creatinine Clearance 17 mL/min (70-130); Calcium 8.2 mg/dL (7.8-10.44); Carbon Dioxide 24 mmol/L (23-31); Chloride 98 mmol/L (98-107); Estimated GFR-MDRD 15; Glucose 244 mg/dL (83-110); Phosphorus 7.3 mg/dL (2.3-4.7); Potassium 4.1 mmol/L (3.5-5.1); Sodium 135 mmol/L (136-145)
[2018-12-29 06:27] LABS: BUN (Urea Nitrogen) 136 mg/dL (8.4-25.7); BUN/Creatinine Ratio 34.61
[2018-12-29] MEDS ORDERED: Epoetin (ESRD) 20,000 UNITS/ML SC SCH (07:00)
[2018-12-29] MEDS ORDERED: predniSONE 20 MG TAB PO SCH (08:00)
[2018-12-29] MEDS: Tamsulosin HCl 0.4 MG CAP PO SCH (10:01)
[2018-12-29] MEDS: Aspirin 81 mg Enteric Coated Tablet PO SCH (10:01)
[2018-12-29] MEDS: Insulin Glargine 15 UNITS in Pre-Filled Syringe 1 EACH SC SCH ×2 (10:01→21:30)
[2018-12-29] MEDS: Ferrous Sulfate 325 MG TAB PO SCH (10:01)
[2018-12-29] MEDS: Cyanocobalamin (Vitamin B-12) 1,000 MCG TAB PO SCH (10:01)
[2018-12-29] MEDS: Furosemide 20 MG TAB PO SCH ×2 (10:02→13:16)
[2018-12-29] MEDS: Folic Acid 1 MG TAB PO SCH (10:02)
[2018-12-29] MEDS: Amlodipine 10 MG TAB PO SCH (10:02)
[2018-12-29] MEDS: HumaLOG 300 UNITS/3 ML VIAL SC SCH ×3 (10:22→17:42)
--- NOTE | 2018-12-29 10:36 | PDOC.PN ---
- Subjective Encounter Start Date: 12/29/18 Encounter Start Time: 07:20 Patient seen and examined. No new complaints. No overnight events - Objective MAR Reviewed: Yes Vital Signs & Weight: Vital Signs (12 hours) Temp Pulse Resp BP Pulse Ox 12/29/18 08:24 95 12/29/18 08:00 97.7 F 68 22 H 125/56 L 95 12/29/18 04:00 97.7 F 68 16 176/74 H 94 L 12/29/18 00:00 97.6 F 69 16 171/65 H 93 L Weight Weight 176 lb 2 oz I&O: 12/28/18 12/29/18 12/30/18 06:59 06:59 06:59 Intake Total 840 1200 Output Total 2100 2070 Balance -1260 -870 Result Diagrams: 12/29/18 05:15 12/29/18 05:15 Additional Labs: Accuchecks 12/29/18 12/28/18 12/28/18 05:33 20:50 18:10 POC Glucose 259 H 329 H 267 H 12/28/18 12/28/18 17:00 10:46 POC Glucose 278 H 335 H EKG Reviewed by me: Yes Phys Exam - Physical Examination Constitutional: NAD HEENT: PERRLA, moist MMs, sclera anicteric Neck: no JVD, supple Respiratory: no wheezing, no rales, no rhonchi Cardiovascular: RRR, no significant murmur, no rub Gastrointestinal: soft, non-tender, no distention, positive bowel sounds Musculoskeletal: no edema, pulses present Neurological: non-focal, normal sensation Lymphatic: no nodes Psychiatric: normal affect, A&O x 3 Skin: no rash, normal turgor Dx/Plan (1) Acute urinary retention Code(s): R33.8 - OTHER RETENTION OF URINE Status: Acute Comment: with guzmán + (2) Hypoglycemia associated with type 2 diabetes mellitus Code(s): E11.649 - TYPE 2 DIABETES MELLITUS WITH HYPOGLYCEMIA WITHOUT COMA Status: Acute (3) S/P lumbar laminectomy Code(s): Z98.890 - OTHER SPECIFIED POSTPROCEDURAL STATES Status: Acute (4) Dyslipidemia Code(s): E78.5 - HYPERLIPIDEMIA, UNSPECIFIED Status: Chronic (5) Hypertension Code(s): I10 - ESSENTIAL (PRIMARY) HYPERTENSION Status: Chronic (6) UTI (urinary tract infection) Status: Acute (7) Anemia, normocytic normochromic Code(s): D64.9 - ANEMIA, UNSPECIFIED Status: Acute Comment: renal disease and chronic disease (8) Diabetes type 2, uncontrolled Code(s): E11.65 - TYPE 2 DIABETES MELLITUS WITH HYPERGLYCEMIA Status: Chronic Comment: labile control (9) Influenza A Code(s): J10.1 - FLU DUE TO OTH IDENT INFLUENZA VIRUS W OTH RESP MANIFEST Status: Acute (10) Acute on chronic diastolic ACC/AHA stage C congestive heart failure Code(s): I50.33 - ACUTE ON CHRONIC DIASTOLIC (CONGESTIVE) HEART FAILURE Status : Acute (11) Acute respiratory failure with hypoxemia Code(s): J96.01 - ACUTE RESPIRATORY FAILURE WITH HYPOXIA Status: Acute (12) NSTEMI (non-ST elevated myocardial infarction) Code(s): I21.4 - NON-ST ELEVATION (NSTEMI) MYOCARDIAL INFARCTION Status: Acute (13) Pancytopenia Code(s): D61.818 - OTHER PANCYTOPENIA Status: Acute (14) Acute worsening of stage 3 chronic kidney disease Code(s): N18.3 - CHRONIC KIDNEY DISEASE, STAGE 3 (MODERATE) Status: Acute (15) Moderate tricuspid regurgitation Code(s): I07.1 - RHEUMATIC TRICUSPID INSUFFICIENCY Status: Acute (16) Pulmonary hypertension Code(s): I27.20 - PULMONARY HYPERTENSION, UNSPECIFIED Status: Acute - Plan cont current plan of care, plan discussed w/ family, PT/OT * will do voiding trial tomorrow before discharge * medication reviewed as below * symptomatic treatment * continue PT * repeat labs tomorrow * we will consider discharge tomorrow. Review of Systems - Review of Systems ENT: negative: Ear Pain, Ear Discharge, Nose Pain, Nose Discharge, Nose Congestion, Mouth Pain, Mouth Swelling, Throat Pain, Throat Swelling, Other Respiratory: negative: Cough, Dry, Shortness of Breath, Hemoptysis, SOB with Excertion, Pleuritic Pain, Sputum, Wheezing Cardiovascular: negative: chest pain, palpitations, orthopnea, paroxysmal nocturnal dyspnea, edema, light headedness, other Gastrointestinal: negative: Nausea, Vomiting, Abdominal Pain, Diarrhea, Constipation, Melena, Hematochezia, Other Genitourinary: negative: Dysuria, Frequency, Incontinence, Hematuria, Retention , Other Musculoskeletal: negative: Neck Pain, Shoulder Pain, Arm Pain, Back Pain, Hand Pain, Leg Pain, Foot Pain, Other - Medications/Allergies Allergies/Adverse Reactions: Allergies Allergy/AdvReac Type Severity Reaction Status Date / Time No Known Allergies Allergy Verified 12/21/18 23:17 Medications: Current Medications Acetaminophen (Tylenol) 650 mg PO Q4H PRN PRN Reason: Headache/Fever or Pain Last Admin: 12/26/18 20:52 Dose: 650 mg Acetaminophen/Codeine Phosphate (Tylenol #3) 1 tab PO Q3H PRN PRN Reason: Mild Pain (1-3) Hydrocodone Bitart/Acetaminophen ([place] 7.5/325) 1 tab PO Q4H PRN PRN Reason: Moderate Pain (4-6) Last Admin: 12/24/18 20:41 Dose: 1 tab Al Hydroxide/Mg Hydroxide (Maalox) 30 ml PO Q4H PRN PRN Reason: Indigestion Albuterol/Ipratropium (Duoneb) 3 ml NEB [id number] [facility] Last Admin: 12/29/18 08:23 Dose: Not Given Amlodipine Besylate (Norvasc) 10 mg PO DAILY [facility] Last Admin: 12/28/18 10:08 Dose: 10 mg Artificial Tears (Tears Naturale) 2 drop EA EYE PRN PRN PRN Reason: Dry Eyes Aspirin (Ecotrin) 81 mg PO DAILY [facility] Last Admin: 12/28/18 10:03 Dose: 81 mg Bisacodyl (Dulcolax) 10 mg [place] Q12H PRN PRN Reason: Constipation Cyanocobalamin (Vitamin B-12) 1,000 mcg PO DAILY [facility] Last Admin: 12/28/18 10:04 Dose: 1,000 mcg Dextrose/Water (Dextrose 50%) 25 gm SLOW IVP PRN PRN PRN Reason: Hypoglycemia Epoetin Jorden (Procrit) 5,000 units SC NOW [facility] Stop: 12/29/18 12:00 Ferrous Sulfate (Feosol) 325 mg PO QAM-[facility] Folic Acid (Folvite) 1 mg PO DAILY [facility] Last Admin: 12/28/18 10:03 Dose: 1 mg Furosemide (Lasix) 40 mg PO 0900,1400 [facility] Last Admin: 12/28/18 14:43 Dose: 40 mg Glucagon (Glucagon) 1 mg IM PRN PRN PRN Reason: Hypoglycemia Guaifenesin (Robitussin Sf) 200 mg PO Q4H PRN PRN Reason: Cough Last Admin: 12/27/18 01:53 Dose: 200 mg Hydralazine HCl (Apresoline) 10 mg SLOW IVP Q4H PRN PRN Reason: SBP > 180 and HR < 70 Dextrose/Water (D5w) 1,000 mls @ 0 mls/hr IV .Q0M PRN PRN Reason: Hypoglycemia Insulin Glargine 15 units/ (Miscellaneous Medication) 0.15 mls @ 0 mls/hr SC HS [facility] Last Admin: 12/28/18 21:58 Dose: 0.15 mls Insulin Glargine 15 units/ (Miscellaneous Medication) 0.15 mls @ 0 mls/hr SC QAM [facility] Last Admin: 12/28/18 10:02 Dose: 0.15 mls Insulin Human Lispro (Humalog) 0 units SC .MODERATE SLIDING SC PRN; Protocol PRN Reason: MODERATE SLIDING SCALE Last Admin: 12/29/18 06:14 Dose: 6 unit Insulin Human Lispro (Humalog) 6 units SC TID-[facility] Last Admin: 12/28/18 16:56 Dose: 6 unit Loperamide HCl (Imodium) 2 mg PO PRN PRN PRN Reason: Diarrhea/Loose Stools Loratadine (Claritin) 10 mg PO DAILYPRN PRN PRN Reason: Sinus Symptoms Magnesium Hydroxide (Milk Of Magnesium) 30 ml PO Q12H PRN PRN Reason: Constipation Metoprolol Succinate (Toprol Xl) 25 mg PO BID [facility] Last Admin: 12/28/18 21:57 Dose: 25 mg Mineral Oil/White Petrolatum (Eucerin Cream) 0 gm TOP BIDPRN PRN PRN Reason: Dry Skin Morphine Sulfate (Morphine) 2 mg SLOW IVP Q1H PRN PRN Reason: Severe Pain (7-10) Last Admin: 12/23/18 15:33 Dose: 2 mg Ondansetron HCl (Zofran Odt) 4 mg SL Q6H PRN PRN Reason: Nausea/Vomiting Ondansetron HCl (Zofran) 4 mg IVP Q6H PRN PRN Reason: Nausea/Vomiting Oseltamivir Phosphate (Tamiflu) 75 mg PO DAILY [facility] Stop: 01/05/19 09:01 Last Admin: 12/28/18 10:03 Dose: 75 mg Prednisone (Prednisone) 20 mg PO QA-[facility] Promethazine HCl (Phenergan) 12.5 mg IM Q4H PRN PRN Reason: Nausea/Vomiting Rosuvastatin Calcium (Crestor) 10 mg PO HS [facility] Last Admin: 12/28/18 21:57 Dose: 10 mg Senna/Docusate Sodium (Senokot S) 2 tab PO BID PRN PRN Reason: Constipation Sodium Chloride (Flush - Normal Saline) 10 ml IVF PRN PRN PRN Reason: Saline Flush Last Admin: 12/29/18 06:12 Dose: 10 ml Sodium Chloride ([place] Nasal [place] 0.65%) 0 ml EA NARE QIDPRN PRN PRN Reason: Nasal Congestion Sterile Water (Bacteriostatic Water) 1 ml FS PRN PRN PRN Reason: RECONSTITUTION Last Admin: 12/29/18 06:12 Dose: 1 ml Tamsulosin HCl (Flomax) 0.4 mg PO DAILY [facility] Last Admin: 12/28/18 10:04 Dose: 0.4 mg Throat Lozenges (Cepastat Lozenges) 1 julia PO Q2H PRN PRN Reason: Sore Throat Tizanidine HCl (Zanaflex) 4 mg PO Q6H PRN PRN Reason: Muscle Spasm Last Admin: 12/25/18 20:03 Dose: 4 mg Tramadol HCl (Ultram) 50 mg PO Q6H PRN PRN Reason: Mild Pain (1-3) Last Admin: 12/23/18 14:23 Dose: 50 mg
[2018-12-29] MEDS: Oseltamivir 75 MG CAP PO SCH (13:28)
--- NOTE | 2018-12-29 17:01 | PRG ---
DATE OF SERVICE: 12/29/2018 SUBJECTIVE: The patient has been in the hospital now for an extended time due to cardiac issues after his C-spine surgery. I had seen him originally for urinary retention. We elected to leave the catheter in for approximately a week to allow him to recover, but due to the other issues, he remained in the hospital with the catheter in. He is planned to be discharged tomorrow and there are plans to remove his catheter prior to discharge. OBJECTIVE: VITAL SIGNS: Temperature 97.9, pulse 74, respirations 18, blood pressure 153/64, and saturations 96% on room air. GENERAL: No apparent distress. ABDOMEN: Soft, nontender, and nondistended. : Clancy catheter in place with clear yellow urine. ASSESSMENT: An 83-year-old white male, status post C-spine surgery with postoperative urinary retention. PLAN: We will plan a void trial for tomorrow. I would recommend continuing his tamsulosin. If he is voiding normally after his void trial, then he does not need to follow up with me and can continue his recovery with his primary care physician and his surgeons. However, if he fails the void trial or passes but continues to have voiding difficulties, then I would recommend follow up with me on an outpatient basis. Job ID: [id number]
[2018-12-29] MEDS ORDERED: Furosemide 40 MG/4 ML VIAL SLOW IVP SCH (18:00)
--- NOTE | 2018-12-29 18:50 | PDOC.CTH ---
Cardiology Progress Note - Subjective No new issues. Breathing minimally changed. - Objective Vital Signs Temp Pulse Pulse Pulse Resp BP BP 12/29/18 11:17 75 69 153/64 H 137/63 12/29/18 10:30 97.9 F 74 18 12/29/18 10:02 68 12/29/18 08:24 12/29/18 08:00 97.7 F 68 22 H BP Pulse Ox 12/29/18 11:17 12/29/18 10:30 124/51 L 96 12/29/18 10:02 12/29/18 08:24 95 12/29/18 08:00 125/56 L 95 Weight 182 lb 12.8 oz 12/28/18 12/29/18 12/30/18 06:59 06:59 06:59 Intake Total 840 1200 Output Total 2100 2070 Balance -1260 -870 - Physical Examination General/Neuro: alert & oriented x3, NAD Neck: no JVD present Lungs: unlabored respirations, other: (Bibasilar crackles. ) Heart: RRR Abdomen: soft Extremities: + edema B (1+) - Telemetry Telemetry Rhythm: NSR - Labs Result Diagrams: 12/29/18 05:15 12/29/18 05:15 Troponin/CKMB CK-MB (CK-2) 2.9 ng/mL (0-6.6) 12/27/18 05:41 Troponin I 0.430 ng/mL (< 0.028) H* 12/27/18 15:09 - Assessment/Plan 1. Acute on chronic diastolic heart failure. 2. ROXANNE on CKD 3. NSTEMI, demand ischemia. 4. Influenza A. 5. Chronic anemia 6. Bandemia. PLAn: - One dose IV lasix. - Continue PO dose of lasix otherwise. - Oseltamivir
[2018-12-29] MEDS: Rosuvastatin 10 MG TAB PO SCH (21:29)
[2018-12-30 07:44] VITALS: TEMP 97.4
[2018-12-30] MEDS: Cyanocobalamin (Vitamin B-12) 1,000 MCG TAB PO SCH (08:32)
[2018-12-30] MEDS: Ferrous Sulfate 325 MG TAB PO SCH (08:32)
[2018-12-30] MEDS: Oseltamivir 75 MG CAP PO SCH (08:32)
[2018-12-30] MEDS: Amlodipine 10 MG TAB PO SCH (08:32)
[2018-12-30] MEDS: Tamsulosin HCl 0.4 MG CAP PO SCH (08:32)
[2018-12-30] MEDS: Furosemide 20 MG TAB PO SCH (08:33)
[2018-12-30] MEDS: Aspirin 81 mg Enteric Coated Tablet PO SCH (08:33)
[2018-12-30] MEDS: Folic Acid 1 MG TAB PO SCH (08:33)
[2018-12-30] MEDS: Insulin Glargine 15 UNITS in Pre-Filled Syringe 1 EACH SC SCH (08:33)
[2018-12-30] MEDS: HumaLOG 300 UNITS/3 ML VIAL SC SCH ×2 (08:33→11:42)
[2018-12-30 08:59] LABS: #Lymphocytes 0.6 thou/uL (1.20-3.40); #Monocytes 0.6 thou/uL (0.11-0.59); %Eosinophils 0.3 % (0.0-10.0); %Monocytes 10.8 % (0.0-10.0); %Neutrophils 77.8 % (42.0-75.0); Hemoglobin 8.6 g/dL (14.0-18.0); Mean Corpuscular HGB CONC 32.3 g/dL (32.0-36.0); Mean Corpuscular Hemoglobin 31.1 pg (27.0-31.0); Mean Corpuscular Volume 96.2 fL (78.0-98.0); Mean Platelet Volume 10.3 fL (7.4-10.4); Platelet Count 222 thou/uL (130-400); Red Blood Cell (RBC) Count 2.75 mill/uL (4.70-6.10); White Blood Cell (WBC) Count 5.1 thou/uL (4.8-10.8)
[2018-12-30 09:15] LABS: Albumin 3.2 g/dL (3.4-4.8); Anion Gap 18 mmol/L (10-20); Calc. Creatinine Clearance 20 mL/min (70-130); Calcium 8.7 mg/dL (7.8-10.44); Carbon Dioxide 27 mmol/L (23-31); Chloride 98 mmol/L (98-107); Estimated GFR-MDRD 17; Glucose 71 mg/dL (83-110); Phosphorus 6.4 mg/dL (2.3-4.7); Potassium 3.6 mmol/L (3.5-5.1); Sodium 139 mmol/L (136-145)
[2018-12-30 09:27] LABS: BUN (Urea Nitrogen) 137 mg/dL (8.4-25.7); BUN/Creatinine Ratio 39.94
--- NOTE | 2018-12-30 10:22 | PRG ---
DATE OF SERVICE: 12/30/2018 Mr. Choe is hospital day 9 following lumbar decompression. He has had multiple medical issues well outlined in my colleague's prior notes. I appreciate their excellent care. The plan is for possible dismissal today and I would be fine with that. His wound is healing well and he has had essentially resolution in his leg pain with moderate paresthesias in the left lateral thigh, before surgery he states it is much better. We already have followup arranged for next week and I am very pleased with his outcome today. Job ID: [id number]
--- NOTE | 2018-12-30 11:05 | PDOC.PN ---
- Subjective Encounter Start Date: 12/30/18 Encounter Start Time: 07:30 Patient seen and examined. No new complaints. No overnight events - Objective MAR Reviewed: Yes Vital Signs & Weight: Vital Signs (12 hours) Temp Pulse Resp BP Pulse Ox 12/30/18 08:33 95 12/30/18 07:39 97.4 F L 63 16 121/52 L 95 12/30/18 03:54 64 126/58 L Weight Weight 182 lb 12.8 oz I&O: 12/29/18 12/30/18 12/31/18 06:59 06:59 06:59 Intake Total 1200 933 Output Total 2070 4910 Balance -870 -8239 Result Diagrams: 12/30/18 08:50 12/30/18 08:50 Additional Labs: Accuchecks 12/30/18 12/29/18 12/29/18 05:48 20:46 16:46 POC Glucose 73 168 H 165 H 12/29/18 11:30 POC Glucose 238 H EKG Reviewed by me: Yes Phys Exam - Physical Examination Constitutional: NAD HEENT: PERRLA, moist MMs, sclera anicteric Neck: no JVD, supple Respiratory: no wheezing, no rales, no rhonchi Cardiovascular: RRR, no significant murmur, no rub Gastrointestinal: soft, non-tender, no distention, positive bowel sounds Musculoskeletal: no edema, pulses present Neurological: non-focal, normal sensation Lymphatic: no nodes Psychiatric: normal affect, A&O x 3 Skin: no rash, normal turgor Dx/Plan (1) Acute urinary retention Code(s): R33.8 - OTHER RETENTION OF URINE Status: Acute Comment: with guzmán + (2) Hypoglycemia associated with type 2 diabetes mellitus Code(s): E11.649 - TYPE 2 DIABETES MELLITUS WITH HYPOGLYCEMIA WITHOUT COMA Status: Acute (3) S/P lumbar laminectomy Code(s): Z98.890 - OTHER SPECIFIED POSTPROCEDURAL STATES Status: Acute (4) Dyslipidemia Code(s): E78.5 - HYPERLIPIDEMIA, UNSPECIFIED Status: Chronic (5) Hypertension Code(s): I10 - ESSENTIAL (PRIMARY) HYPERTENSION Status: Chronic (6) UTI (urinary tract infection) Status: Acute (7) Anemia, normocytic normochromic Code(s): D64.9 - ANEMIA, UNSPECIFIED Status: Acute Comment: renal disease and chronic disease (8) Diabetes type 2, uncontrolled Code(s): E11.65 - TYPE 2 DIABETES MELLITUS WITH HYPERGLYCEMIA Status: Chronic Comment: labile control (9) Influenza A Code(s): J10.1 - FLU DUE TO OTH IDENT INFLUENZA VIRUS W OTH RESP MANIFEST Status: Acute (10) Acute on chronic diastolic ACC/AHA stage C congestive heart failure Code(s): I50.33 - ACUTE ON CHRONIC DIASTOLIC (CONGESTIVE) HEART FAILURE Status : Acute (11) Acute respiratory failure with hypoxemia Code(s): J96.01 - ACUTE RESPIRATORY FAILURE WITH HYPOXIA Status: Acute (12) NSTEMI (non-ST elevated myocardial infarction) Code(s): I21.4 - NON-ST ELEVATION (NSTEMI) MYOCARDIAL INFARCTION Status: Acute (13) Pancytopenia Code(s): D61.818 - OTHER PANCYTOPENIA Status: Acute (14) Acute worsening of stage 3 chronic kidney disease Code(s): N18.3 - CHRONIC KIDNEY DISEASE, STAGE 3 (MODERATE) Status: Acute (15) Moderate tricuspid regurgitation Code(s): I07.1 - RHEUMATIC TRICUSPID INSUFFICIENCY Status: Acute (16) Pulmonary hypertension Code(s): I27.20 - PULMONARY HYPERTENSION, UNSPECIFIED Status: Acute - Plan cont current plan of care * medication reviewed as below * symptomatic treatment * see discharge anne marie. Review of Systems - Review of Systems ENT: negative: Ear Pain, Ear Discharge, Nose Pain, Nose Discharge, Nose Congestion, Mouth Pain, Mouth Swelling, Throat Pain, Throat Swelling, Other Respiratory: negative: Cough, Dry, Shortness of Breath, Hemoptysis, SOB with Excertion, Pleuritic Pain, Sputum, Wheezing Cardiovascular: negative: chest pain, palpitations, orthopnea, paroxysmal nocturnal dyspnea, edema, light headedness, other Gastrointestinal: negative: Nausea, Vomiting, Abdominal Pain, Diarrhea, Constipation, Melena, Hematochezia, Other Genitourinary: negative: Dysuria, Frequency, Incontinence, Hematuria, Retention , Other Musculoskeletal: negative: Neck Pain, Shoulder Pain, Arm Pain, Back Pain, Hand Pain, Leg Pain, Foot Pain, Other - Medications/Allergies Allergies/Adverse Reactions: Allergies Allergy/AdvReac Type Severity Reaction Status Date / Time No Known Allergies Allergy Verified 12/21/18 23:17 Medications: Current Medications Acetaminophen (Tylenol) 650 mg PO Q4H PRN PRN Reason: Headache/Fever or Pain Last Admin: 12/26/18 20:52 Dose: 650 mg Acetaminophen/Codeine Phosphate (Tylenol #3) 1 tab PO Q3H PRN PRN Reason: Mild Pain (1-3) Hydrocodone Bitart/Acetaminophen ([place] 7.5/325) 1 tab PO Q4H PRN PRN Reason: Moderate Pain (4-6) Last Admin: 12/24/18 20:41 Dose: 1 tab Al Hydroxide/Mg Hydroxide (Maalox) 30 ml PO Q4H PRN PRN Reason: Indigestion Albuterol/Ipratropium (Duoneb) 3 ml NEB [id number] [facility] Last Admin: 12/30/18 10:30 Dose: Not Given Amlodipine Besylate (Norvasc) 10 mg PO DAILY [facility] Last Admin: 12/30/18 08:32 Dose: 10 mg Artificial Tears (Tears Naturale) 2 drop EA EYE PRN PRN PRN Reason: Dry Eyes Aspirin (Ecotrin) 81 mg PO DAILY [facility] Last Admin: 12/30/18 08:33 Dose: 81 mg Bisacodyl (Dulcolax) 10 mg LA Q12H PRN PRN Reason: Constipation Cyanocobalamin (Vitamin B-12) 1,000 mcg PO DAILY [facility] Last Admin: 12/30/18 08:32 Dose: 1,000 mcg Dextrose/Water (Dextrose 50%) 25 gm SLOW IVP PRN PRN PRN Reason: Hypoglycemia Ferrous Sulfate (Feosol) 325 mg PO QAM-[facility] Last Admin: 12/30/18 08:32 Dose: 325 mg Folic Acid (Folvite) 1 mg PO DAILY [facility] Last Admin: 12/30/18 08:33 Dose: 1 mg Furosemide (Lasix) 40 mg PO 0900,1400 [facility] Last Admin: 12/30/18 08:33 Dose: 40 mg Glucagon (Glucagon) 1 mg IM PRN PRN PRN Reason: Hypoglycemia Guaifenesin (Robitussin Sf) 200 mg PO Q4H PRN PRN Reason: Cough Last Admin: 12/27/18 01:53 Dose: 200 mg Hydralazine HCl (Apresoline) 10 mg SLOW IVP Q4H PRN PRN Reason: SBP > 180 and HR < 70 Dextrose/Water (D5w) 1,000 mls @ 0 mls/hr IV .Q0M PRN PRN Reason: Hypoglycemia Insulin Glargine 15 units/ (Miscellaneous Medication) 0.15 mls @ 0 mls/hr SC [facility] Last Admin: 12/29/18 21:30 Dose: Not Given Insulin Glargine 15 units/ (Miscellaneous Medication) 0.15 mls @ 0 mls/hr [facility] Last Admin: 12/30/18 08:33 Dose: 0.15 mls Insulin Human Lispro (Humalog) 0 units SC .MODERATE SLIDING SC PRN; Protocol PRN Reason: MODERATE SLIDING SCALE Last Admin: 12/29/18 06:14 Dose: 6 unit Insulin Human Lispro (Humalog) 6 units SC TID[facility] Last Admin: 12/30/18 08:33 Dose: Not Given Loperamide HCl (Imodium) 2 mg PO PRN PRN PRN Reason: Diarrhea/Loose Stools Loratadine (Claritin) 10 mg PO DAILYPRN PRN PRN Reason: Sinus Symptoms Magnesium Hydroxide (Milk Of Magnesium) 30 ml PO Q12H PRN PRN Reason: Constipation Metoprolol Succinate (Toprol Xl) 25 mg PO BID [facility] Last Admin: 12/30/18 08:32 Dose: 25 mg Mineral Oil/White Petrolatum (Eucerin Cream) 0 gm TOP BIDPRN PRN PRN Reason: Dry Skin Morphine Sulfate (Morphine) 2 mg SLOW IVP Q1H PRN PRN Reason: Severe Pain (7-10) Last Admin: 12/23/18 15:33 Dose: 2 mg Ondansetron HCl (Zofran Odt) 4 mg SL Q6H PRN PRN Reason: Nausea/Vomiting Ondansetron HCl (Zofran) 4 mg IVP Q6H PRN PRN Reason: Nausea/Vomiting Oseltamivir Phosphate (Tamiflu) 75 mg PO DAILY [facility] Stop: 01/05/19 09:01 Last Admin: 12/30/18 08:32 Dose: 75 mg Promethazine HCl (Phenergan) 12.5 mg IM Q4H PRN PRN Reason: Nausea/Vomiting Rosuvastatin Calcium (Crestor) 10 mg PO [facility] Last Admin: 12/29/18 21:29 Dose: 10 mg Senna/Docusate Sodium (Senokot S) 2 tab PO BID PRN PRN Reason: Constipation Sodium Chloride (Flush - Normal Saline) 10 ml IVF PRN PRN PRN Reason: Saline Flush Last Admin: 12/29/18 21:30 Dose: 10 ml Sodium Chloride ([place] Nasal [place] 0.65%) 0 ml EA NARE QIDPRN PRN PRN Reason: Nasal Congestion Sterile Water (Bacteriostatic Water) 1 ml FS PRN PRN PRN Reason: RECONSTITUTION Last Admin: 12/29/18 06:12 Dose: 1 ml Tamsulosin HCl (Flomax) 0.4 mg PO DAILY [facility] Last Admin: 12/30/18 08:32 Dose: 0.4 mg Throat Lozenges (Cepastat Lozenges) 1 julia PO Q2H PRN PRN Reason: Sore Throat Tizanidine HCl (Zanaflex) 4 mg PO Q6H PRN PRN Reason: Muscle Spasm Last Admin: 12/25/18 20:03 Dose: 4 mg Tramadol HCl (Ultram) 50 mg PO Q6H PRN PRN Reason: Mild Pain (1-3) Last Admin: 12/23/18 14:23 Dose: 50 mg
[2018-12-30 11:46] VITALS: BP 146/65
--- NOTE | 2018-12-30 11:59 | DIS ---
DATE OF ADMISSION: 12/21/2018 DATE OF DISCHARGE: 12/30/2018 PRIMARY CARE PHYSICIAN: Ferny Fischer MD. DISCHARGE DISPOSITION: Home with home health. PRIMARY DISCHARGE DIAGNOSES: 1. Status post lumbar laminectomy. 2. Acute on chronic diastolic congestive heart failure, stage C. 3. Acute respiratory failure with hypoxia. 4. Acute urinary retention due to benign enlargement of prostate. 5. Acute on chronic kidney failure at baseline chronic kidney disease stage 3. 6. Hypoglycemia and labile diabetes while in hospital. 7. Influenza A. 8. Non-ST elevation myocardial infarction type 2. 9. Urinary tract infection, treated in hospital. SECONDARY DISCHARGE DIAGNOSES: Hypertension, dyslipidemia, diabetes type 2, coronary artery disease, chronic kidney disease stage 3, chronic lumbar stenosis, pulmonary hypertension, moderate tricuspid regurgitation, chronic diastolic heart failure, normocytic normochromic anemia. PRIMARY PROCEDURE/OPERATION: Lumbar laminectomy. RADIOLOGICAL INVESTIGATION: Chest x-ray, abdomen and pelvis CT scan, renal ultrasound, abdominal x-ray, echocardiography, and repeat chest x-ray. SIGNIFICANT LABORATORY DATA: Hemoglobin 8.6, WBC 5.1, platelets 222. Sodium 139, potassium 3.6, BUN 137, creatinine 3.43, calcium 8.7, phosphorus 6.4, albumin 3.2. Blood culture, urine culture negative. Stool for guaiac negative. Respiratory, virus panel positive for influenza. DISCHARGE MEDICATIONS: 1. Aspirin 81 mg daily. 2. Lasix 40 mg p.o. daily. 3. Humalog 8 units subcu t.i.d. 4. Glargine insulin 8 units subcu b.i.d. 5. Crestor 10 mg daily. 6. Amlodipine 10 mg daily. 7. Vitamin B12 1000 mcg daily. 8. Ferrous sulfate 325 mg p.o. daily. 9. Folic acid 1 mg daily. 10. Toprol-XL 50 mg daily. 11. Flomax 0.4 mg p.o. daily. CONTRAINDICATION: None. CODE STATUS: Full code. INPATIENT NIB FINISHER: Dr. Coats was primary while in hospital for lumbar laminectomy. Dr. Chanel was consulted for urinary retention. Dr. Pratt was consulted for sepsis. Cardiology was consulted for CHF. Oncology was consulted for pancytopenia. Test result pending on discharge, none. ALLERGIES: NO KNOWN DRUG ALLERGY. DISCHARGE PLAN: Posthospital, the patient will follow up with all product safety consultant as instructed. HOSPITAL COURSE: An 83-year-old male, who was admitted for lumbar laminectomy, which was done by Dr. Coats. Postoperatively, Sound Team was consulted for medical comanagement. Initially, the patient had urinary tract infection and acute urinary retention, which we attributed to be due to benign enlargement of prostate. We started Flomax. He required a Clancy catheter in while in the hospital, and Urology was consulted. While in hospital, we did a Clancy removal and voiding trial with the successful result. He will continue Flomax, and he will follow up with Urology after discharge. Subsequently, the patient developed febrile illness. While in hospital, he was getting high fever recurrently with respiratory symptoms. The patient was started on broad-spectrum antibiotic therapy, which was covering lung as well as urinary tract infection. The patient's respiratory panel came back positive for influenza. At that point, we started Tamiflu. For his sepsis, we consulted Dr. Pratt. While in hospital, his culture remained negative. By the time of discharge, his fever completely subsided. He has finished complete course of antibiotic therapy as well as he finished complete course of Tamiflu as well. Initially, he was given vancomycin and Zosyn. Subsequently, Dr. Pratt changed to Rocephin and vancomycin and both antibiotic therapy was discontinued eventually. The patient also developed acute on chronic kidney failure and that is why he was given initially IV fluid that made his pulmonary vascular congestion. His renal function continued to get worse with Lasix, and that is why we consulted Nephrology. We did renal ultrasound. At this point, the patient's renal function is coming towards his baseline. He will follow up with the Nephrology as an outpatient basis. While in hospital, he developed acute respiratory failure. He required Cardiology consultation. Acute respiratory failure was related with a diastolic heart failure exacerbation, which was treated with Lasix. His blood pressure medication was adjusted as above for a renal protection as well as because of hyperkalemia. We discontinued the lisinopril. All new medication prescription given. The patient is doing very well. His respiratory failure improved. His kidney function is improving. His infection is controlled and gone. He will follow up with above-mentioned product safety consultant. The patient is seen and examined at the bedside today. All new medication prescription sent to his pharmacy. Job ID: [id number]
== END 2018-12-30 13:15 | disposition home health service (06) | DRG 518 ==
LOC: SDC 07:23 → T4-B 12:54 → 2SE 12-26 23:29 → 2NO 12-29 10:18
PROVIDERS: ADMIT Surgery; ATTEND Surgery
PROC: 01NB0ZZ Release Lumbar Nerve, Open Approach (ICD-10-PCS; principal; 2018-12-21)
PROC: 0SB20ZZ Excision of Lumbar Vertebral Disc, Open Approach (ICD-10-PCS; 2018-12-21)
PROC: 30233N1 Transfusion of Nonautologous Red Blood Cells into Peripheral Vein, Percutaneous Approach (ICD-10-PCS; 2018-12-22)
PROC: 30233N1 Transfusion of Nonautologous Red Blood Cells into Peripheral Vein, Percutaneous Approach (ICD-10-PCS; 2018-12-23)
DX: M48.061 Spinal stenosis, lumbar region without neurogenic claudication (principal); I50.33 Acute on chronic diastolic (congestive) heart failure; J96.01 Acute respiratory failure with hypoxia; I21.A1 Myocardial infarction type 2; A41.9 Sepsis, unspecified organism; N17.9 Acute kidney failure, unspecified; I13.0 Hypertensive heart and chronic kidney disease with heart failure and stage 1 through stage 4 chronic kidney disease, or unspecified chronic kidney disease; D61.818 Other pancytopenia; N39.0 Urinary tract infection, site not specified; M54.16 Radiculopathy, lumbar region; N18.3 Chronic kidney disease, stage 3 (moderate); N40.1 Benign prostatic hyperplasia with lower urinary tract symptoms; R33.8 Other retention of urine; E11.649 Type 2 diabetes mellitus with hypoglycemia without coma; E78.5 Hyperlipidemia, unspecified; D53.9 Nutritional anemia, unspecified; E11.22 Type 2 diabetes mellitus with diabetic chronic kidney disease; I07.1 Rheumatic tricuspid insufficiency; I27.20 Pulmonary hypertension, unspecified; D63.1 Anemia in chronic kidney disease; J10.1 Influenza due to other identified influenza virus with other respiratory manifestations; E87.5 Hyperkalemia; I25.10 Atherosclerotic heart disease of native coronary artery without angina pectoris; E11.40 Type 2 diabetes mellitus with diabetic neuropathy, unspecified; Z79.4 Long term (current) use of insulin; Z79.899 Other long term (current) drug therapy; Z95.1 Presence of aortocoronary bypass graft; Z79.82 Long term (current) use of aspirin
CPT/HCPCS: 36415; 36416; 36430; 71045; 74018; 74176; 76000; 76770; 80048; 80053; 80069; 80076; 80202; 81003; 81015; 82010; 82274; 82553; 82570; 82607; 82728; 82746; 83036; 83540; 83550; 83605; 83735; 83880; 84100; 84443; 84484; 85025; 85652; 86140; 86850; 86900; 86901; 87040; 87086; 87633; 93306; 93970; 94640; 94760; J0696; J1815; J1825; J1940; J1956; J2001; J2270; J2405; J2704; J2920; J3010; J3370; J3490; J7050; J7620; P9016; Q4081